=== PATIENT | female | born 1995 | race Caucasian/White ===

== ENCOUNTER 2021-09-08 12:21 | Emergency (ER) | payer BC, SELFPAY ==
--- NOTE | ~2021-09-08 | US_ITS ---
EXAMINATION: US OB <= 14 weeks fetus DATE: 09/08/2021 14:42 INDICATION: Cramping onset this morning. TECHNIQUE: Real-time transabdominal obstetric ultrasound. FINDINGS: No prior studies for comparison. The uterus measures 11.8 x 9.1 x 7.9 cm. There is an intrauterine gestational sac, with pole id entified. There is a small subchorionic hemorrhage measuring 11 x 8 x 3 mm. The crown rump length hannah sures 6.23 cm, which correlates with a estimated gestational age of 12 weeks 4 days. heart to conor are identified measuring 155 BPM. Right ovary is normal. Left ovary not visualized. IMPRESSION: 1. SL IUP with an EGA of 12 weeks, 4 days (EDC by current ultrasound of 03/19/2022). 2: Small subchorionic hemorrhage measuring 11 x 8 x 3 mm. Reviewed, dictated and finalized at location A. ONOLOGY TECHNICIAN IMPRESSION: 1. SL IUP with an EGA of 12 weeks, 4 days (EDC by current ultrasound of 022). 2: Small subchorionic hemorrhage measuring 11 x 8 x 3 mm.
[2021-09-08 12:38] VITALS: BP 153/78; PULSE 85; RESP 16; TEMP 36.8; O2SAT 100
[2021-09-08 13:19] LABS: Basophils Absolute Auto 0.1 K/mm3 (0.0-0.1); Basophils Percent Auto 0.5 % (0.2-1.2); Eosinophils Absolute Auto 0.2 K/mm3 (0-0.3); Eosinophils Percent Auto 1.5 % (0-4.4); Hematocrit 35.2 % (37.0-47.0); Immature Granulocyte Absolute 0.03 K/mm3 (0.00-0.031); Immature Granulocyte Percent A 0.3 % (0-0.5); Lymphocytes Absolute Auto 2.59 K/mm3 (0.9-3.2); Mean Corpuscular HGB Conc 34.1 g/dl (32-36); Mean Corpuscular Hemoglobin 29.8 pg (26-34); Mean Corpuscular Volume 87.3 fl (80-100); Mean Platelet Volume 9.3 fl (7.4-10.4); Monocytes Absolute Auto 0.7 K/mm3 (0.1-0.6); Monocytes Percent Auto 6.9 % (2.6-8.5); Neutrophils Absolute Auto 6.5 K/mm3 (1.3-6.7); Neutrophils Percent Auto 64.8 % (45.5-73.1); Platelet Count Result 330 k/mm3 (150-375); Red Blood Count 4.03 M/mm3 (4.2-5.4); Red Cell Distribution Width 12.2 % (11.5-14.5)
--- NOTE | 2021-09-08 13:26 | PC.NURSE ---
pt states she has been unable to set up care for this . Reports issues with her insurance. states she has a hx of PCOS. pt reports lower belly cramping x 1 day. denies vaginal bleeding or discharge.
--- NOTE | 2021-09-08 13:35 | PC.NURSE ---
lab called to add on additional tests
[2021-09-08 13:45] LABS: Add Urine Microscopic? YES; Amorphous Sediment Urine Few; Appearance Urine Cloudy (Clear); Bacteria Urine Trace /hpf; Bilirubin Urine Negative (Negative); Blood Urine Negative (Negative); Color Urine Yellow (Yellow); Glucose Urine UA Negative (Negative); Ketones Urine Negative (Negative); Leukocyte Esterase Ur Negative LEU/UL (Negative); Mucus Urine Rare /lpf; Nitrate Urine Negative (Negative); Protein Urine Negative (Negative); RBC Urine 0-2 /hpf (0-2); Specific Grav Ur 1.017 (1.001-1.035); Squamous Epithelial Cell Urine Few /hpf (Few); Urobilinogen Urine Negative mg/dL (<2.0)
[2021-09-08 14:07] LABS: Alanine Aminotransferase 17 U/L (4-35); Albumin Level 3.9 g/dL (3.5-5.1); Alkaline Phosphatase 50 U/L (38-126); Anion Gap 8 mmol/L (8-16); Aspartate Amino Transferase 25 U/L (14-36); Bilirubin,Total < 0.1 mg/dL (0.2-1.3); Blood Urea Nitrogen 8 mg/dL (7-17); Carbon Dioxide 21 mmol/L (22-30); Chloride 107 mmol/L (98-107); Estimated CRCL calculation 210 ml/min; Estimated Glomerular Filt Rate > 60; Glucose 93 mg/dL (65-110); Lipase 51 U/L (23-300); Potassium 3.7 mmol/L (3.4-5.0); Sodium 136 mmol/L (137-145)
--- NOTE | 2021-09-08 14:32 | PC.NURSE ---
pt to us via w/c.
--- NOTE | 2021-09-08 14:41 | ED.FEMALEGU ---
HPI - Female Genitourinary General Chief complaint: RADAR TESTER <Elke Luna PA-C - Last Filed: 09/08/21 17:14> Stated complaint: Cramping during <Elke Luna PA-C - Last Filed: 09/08/21 17:14> Time Seen by Provider: 09/08/21 13:32 <Elke Luna PA-C - Last Filed: 09/08/21 17:14> Source: patient <Elke Luna PA-C - Last Filed: 09/08/21 17:14> Mode of arrival: ambulatory <Elke Luna PA-C - Last Filed: 09/08/21 17:14> Limitations: no limitations <Elke Luna PA-C - Last Filed: 09/08/21 17:14> History of Present Illness HPI Narrative: This is a 26 year old female that presents to the ER for pelvic cramping starting today. Reports she is about 12 weeks . This is her first . She has not seen an OB yet this due to insurance reasons. Although, she has had a ultrasound that showed an intrauterine in July. Denies fever, vomiting, dysuria, or vaginal bleeding. <Elke Luna PA-C - Last Filed: 09/08/21 17:14> Related Data Allergies/Adverse reactions: Allergies Allergy/AdvReac Type Severity Reaction Status Date / Time No Known Allergies Allergy Verified 09/08/21 14:24 <Elke Luna PA-C - Last Filed: 09/08/21 17:14> Review of Systems Review of Systems: CONSTITUTIONAL: Denies fever GASTROINTESTINAL: Reports pelvic cramping. Denies nausea, vomiting, or diarrhea. GENITOURINARY: Denies dysuria <Elke Luna PA-C - Last Filed: 09/08/21 17:14> All systems reviewed & are unremarkable except as noted in HPI and below <Elke Luna PA-C - Last Filed: 09/08/21 17:14> PMF Past Medical History Medical History: Medical History (Updated 09/08/21 @ 17:14 by Elke Luna PA-C) No active medical problems <Elke Luna PA-C - Last Filed: 09/08/21 17:14> Social History Social History: Social History (Updated 09/08/21 @ 17:00 by Elke Luna PA-C) Substance use: never <Elke Luna PA-C - Last Filed: 09/08/21 17:14> Exam Narrative: GENERAL: Well-appearing, well-nourished, and in no acute distress. HEAD: Normocephalic, atraumatic. EYES: EOMI. CHEST: Clear to auscultation. No respiratory distress. No wheezes rales or rhonchi HEART: Regular rate and rhythm. No murmur heard. Normal peripheral pulses. ABDOMEN: Soft, nontender, nondistended, normal active bowel sounds. EXTREMITIES: Normal range of motion. No edema. SKIN: Warm, dry, no rash. NEURO: No focal deficits. Alert and oriented x3. PSYCH: Normal mood and affect <Elke Luna PA-C - Last Filed: 09/08/21 17:14> Course CARE NURSE RN/PA Physician Supervision For this patient encounter, I reviewed the CARE NURSE RN or PA documentation, treatment plan, and medical decision making <Ariel Harman MD - Last Filed: 09/08/21 19:20> Vital Signs Vital signs: Vital Signs Temperature 98.2 F 09/08/21 12:38 Pulse Rate 85 09/08/21 12:38 Respiratory Rate 16 09/08/21 12:38 Blood Pressure 153/78 H 09/08/21 12:38 Pulse Oximetry 100 09/08/21 12:38 Temperature 98.2 F 09/08/21 12:38 Pulse Rate 80 09/08/21 17:19 Respiratory Rate 18 09/08/21 17:19 Blood Pressure 102/88 09/08/21 17:19 Pulse Oximetry 99 09/08/21 17:19 <Elke Luna PA-C - Last Filed: 09/08/21 17:14> Vital Signs Temperature 98.2 F 09/08/21 12:38 Pulse Rate 85 09/08/21 12:38 Respiratory Rate 16 09/08/21 12:38 Blood Pressure 153/78 H 09/08/21 12:38 Pulse Oximetry 100 09/08/21 12:38 Temperature 98.2 F 09/08/21 12:38 Pulse Rate 80 09/08/21 17:19 Respiratory Rate 18 09/08/21 17:19 Blood Pressure 102/88 09/08/21 17:19 Pulse Oximetry 99 09/08/21 17:19 <Ariel Harman MD - Last Filed: 09/08/21 19:20> MDM - Female Genitourinary MDM Narrative Medical decision making narrative: Patient presents to the ER for pelvic cramping. Reports she is about 12 weeks . Has no
[2021-09-08] MEDS: SODIUM CHLORIDE 0.9% IV 500 ML 999 ML IV CONT (15:08)
--- NOTE | 2021-09-08 15:52 | PC.NURSE ---
Pt updated on stay in ER, all questions addressed. ambulated to restroom.
[2021-09-08 17:19] VITALS: BP 102/88; PULSE 80; RESP 18; O2SAT 99
== END 2021-09-08 17:19 | disposition home or self-care (01) ==
PROVIDERS: Physician Assistant; Emergency Provider Emergency Medicine
DX: O26.891 Other specified pregnancy related conditions, first trimester (principal); R10.9 Unspecified abdominal pain; Z3A.12 12 weeks gestation of pregnancy
CPT/HCPCS: 36415; 76801; 80053; 81001; 81025; 83690; 84702; 85025; 85461; 96365; 99284; J0131; J7040

== ENCOUNTER 2021-10-16 13:32 | Outpatient (CLI) | payer OTHER, SELFPAY ==
--- NOTE | ~2021-10-16 | US_ITS ---
US breast LT limited 10/16/2021 14:29 Indication: Palpable left breast lump Procedure: High-resolution ultrasound of the left breast Comparison: No prior studies for comparison. Findings: Inferior and lateral to the left breast in the area of palpable concern there is an oval ci rcumscribed hypoechoic mass with parallel orientation, no internal vascularity and no posterior featu res measuring 10 x 8 x 4 mm. No other masses identified. Impression: 1: Oval hypoechoic 1 cm mass inferior lateral to the left breast, likely benign. BI-RADS CATEGORY 3-PROBABLY BENIGN FINDING RECOMMENDATION: Six-month follow-up left breast ultrasound recommended. Reviewed, dictated and finalized at location A. Impression: 1: Oval hypoechoic 1 cm mass inferior lateral to the left breast, likely benign . BI-RADS CATEGORY 3-PROBABLY BENIGN FINDING RECOMMENDATION: Six-month follow-up left breast ultrasound recommended.
== END 2021-10-16 13:33 | disposition home or self-care (01) ==
LOC: ANHIMG 13:34
PROVIDERS: Visit Provider Advanced Practice Midwife
DX: N63.20 Unspecified lump in the left breast, unspecified quadrant (principal); R92.8 Other abnormal and inconclusive findings on diagnostic imaging of breast
CPT/HCPCS: 76642

== ENCOUNTER 2021-12-24 10:41 | Observation (INO) | payer OTHER, SELFPAY ==
[2021-12-24] VITALS (17 sets, daily range): BP systolic 127; BP diastolic 77; PULSE 72–88; O2SAT 97–99; BMI 48.0
--- NOTE | 2021-12-24 11:01 | OBADM ---
This patient, Pita Martinez, admitted to the OB room OB Post 116 for observation. Patient/family oriented to hospital policies and general routines including ID bracelet, bed and alarms, visiting hours, pain management, procedures, bathroom and other care routines, personal items, smoking policy, room service/diet, and visiting hours. Patient/Family are encouraged to report perceived risks to care and to ask questions if they do not understand what they are told or what they should do.
[2021-12-24] MEDS: CYCLOBENZAPRINE HCL 10 MG TABLET PO (11:08)
--- NOTE | 2021-12-24 13:12 | PC.NURSE ---
1236- Spoke with Dr. Pritchett, patient discomfort mildly relieved with flexeril. Orders to discharge home with tylenol, heat and cold. Call office if unresolved.
--- NOTE | 2022-01-18 13:54 | PM.OBTRLD ---
OB - Triage/Final Diagnosis Visit Information Comments/Additional reasons for admission: I have assessed the risk for this patient, Pita Martinez, and determined that she would benefit from observation care. Final Diagnosis (1) Pelvic pain: Code(s): R10.2 - Pelvic and perineal pain Status: Acute
== END 2021-12-24 13:01 | disposition home or self-care (01) ==
PROVIDERS: Admitting Provider Obstetrics & Gynecology; Visit Provider Obstetrics & Gynecology
DX: O26.899 Other specified pregnancy related conditions, unspecified trimester (principal); R10.9 Unspecified abdominal pain; Z3A.00 Weeks of gestation of pregnancy not specified
CPT/HCPCS: A9270; G0378; G0379

== ENCOUNTER 2022-01-25 11:00 | Outpatient (RCR) | payer OTHER, SELFPAY ==
--- NOTE | 2021-12-28 14:43 | PTOPEVAL ---
PHYSICAL THERAPY EVALUATION AND PLAN OF CARE 12-28-21 Thank you for referring Pita Martinez to [facility] for the diagnosis of sciatica with .? She is scheduled to be seen for therapy? 1-2 x/week for 5 weeks, depending upon her schedule. Please review, sign, date and return this plan of care DAMI. I agree with and certify that the following plan of care is medically necessary. Referring Physician Date Referring Provider: Sol Lee CNM Past Medical History Cardiovascular History Hx Hypertension Yes: no meds Reproductive History Hx Other Reproductive Disorders Yes: polycystic ovarian syndrome Psychosocial History Hx Psychiatric Disorders No Significant History Pain History History of Any Previous or Ongoing No Significant History Instance of Pain Anesthesia History Hx Anesthesia Reactions No Significant History Other History Hx Other Medical Conditions Yes: obesity 240-260# is normal wt Evaluation Information Diagnosis sciatica with Onset July 2021 Additional Evaluation Detail have gained 40# so far with Subjective Information gradual increase in back pain Query Text:As Reported By Patient/ with ; no trauma or Family injury to back; was on light duty, returned to full work and with lifting, had pulled vagina muscles and returned to light duty; delivery date for her first child is 03-20-22 Previous Treatments For This Problem no back treatments Prior Level of Function Activity Level (Last 3 Months) 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; Comments Additional Prior Level of Function dr has her on light duty Comments restriction--training, no lifting; has help at home with home tasks and new depression med has made her ill, so required help; Pain Assessment Pain Scale Pain Scale Used Numeric (1 - 10) Self Report Pain Assessment Bilateral Back Reported Pain Level 6 Pain Description Sharp,Stabbing Radicular Pain Location L LE post LE to toes ~ 3x/wk, last 20-30 min; Pain Frequency Chronic,Continuous Other Pain Description could not move L leg Lowest Pain Intensity 3 Greatest Pain Intensity 10 Pain Aggravating Factors Sitting Other Pain Aggravating Factors reports sit tolerance 5
--- NOTE | 2022-01-04 08:17 | PCPTNOTE ---
Patient called & cancelled scheduled appointment this date due to being sick this morning.
--- NOTE | 2022-01-12 10:53 | PCPTNOTE ---
Patient called & cancelled scheduled appointment this date due to oversleeping.
--- NOTE | 2022-01-14 07:36 | PCPTNOTE ---
Patient called & cancelled scheduled appointment this date due to due to being up all night at the hospital just got home and needs to sleep.
--- NOTE | 2022-01-22 08:00 | PCPTNOTE ---
Patient called & cancelled scheduled appointment this date due to not feeling well.
--- NOTE | 2022-02-01 11:37 | PCPTNOTE ---
pt did not show for today's reeval; called and her voice mail box is full unable to reach her.
--- NOTE | 2022-03-08 13:29 | PTOPDC ---
Evaluation Information Assessment Status Evaluation Attending Provider: Sol Lee CNM Patient:Pita Martinez Date of :1995 Pita has not returned for any further treatments since 01/25/2022, therefore she will be discharged at this time. She had 5 PT sessions from December to January 25, with 1 no show and 4 call/cancel appointments. The goals were not addressed. Thank you for referring this patient to [facility]. Please review, sign, date and return this discharge summary DAMI. I have been updated about the patient's current status and I agree with discharge from the above service at this time. Referring Physician Date
== END 2022-03-08 14:05 | disposition home or self-care (01) ==
LOC: ANHPT 11:00
PROVIDERS: Visit Provider Advanced Practice Midwife
DX: M54.30 Sciatica, unspecified side (principal)
CPT/HCPCS: 97110; 97112; 97161; 97530

== ENCOUNTER 2022-02-03 13:34 | Outpatient (CLI) | payer OTHER, SELFPAY ==
[2022-02-03] VITALS (8 sets, daily range): BP systolic 110–128; BP diastolic 63–80; PULSE 67–85
[2022-02-03 14:10] LABS: Basophils Percent Auto 0.4 % (0.2-1.2); Eosinophils Absolute Auto 0.2 K/mm3 (0-0.3); Eosinophils Percent Auto 1.5 % (0-4.4); Hematocrit 33.7 % (37.0-47.0); Immature Granulocyte Absolute 0.06 K/mm3 (0.00-0.031); Immature Granulocyte Percent A 0.5 % (0-0.5); Lymphocytes Absolute Auto 2.31 K/mm3 (0.9-3.2); Mean Corpuscular HGB Conc 32.6 g/dl (32-36); Mean Corpuscular Hemoglobin 28.6 pg (26-34); Mean Corpuscular Volume 87.5 fl (80-100); Mean Platelet Volume 9.6 fl (7.4-10.4); Monocytes Absolute Auto 0.7 K/mm3 (0.1-0.6); Monocytes Percent Auto 6.3 % (2.6-8.5); Neutrophils Absolute Auto 7.7 K/mm3 (1.3-6.7); Neutrophils Percent Auto 70.3 % (45.5-73.1); Platelet Count Result 299 k/mm3 (150-375); Red Blood Count 3.85 M/mm3 (4.2-5.4); Red Cell Distribution Width 12.2 % (11.5-14.5)
[2022-02-03 14:24] LABS: Alanine Aminotransferase 12 U/L (6-35); Albumin Level 3.4 g/dL (3.5-5.1); Alkaline Phosphatase 87 U/L (38-126); Anion Gap 7 mmol/L (8-16); Aspartate Amino Transferase 17 U/L (14-36); Bilirubin,Total 0.2 mg/dL (0.2-1.3); Blood Urea Nitrogen 8 mg/dL (7-17); Calcium 8.9 mg/dL (8.4-10.2); Carbon Dioxide 22 mmol/L (22-30); Chloride 106 mmol/L (98-107); Estimated Glomerular Filt Rate > 60; Glucose 82 mg/dL (65-110); Potassium 3.9 mmol/L (3.4-5.0); Sodium 135 mmol/L (137-145)
[2022-02-03 14:31] LABS: Add Urine Microscopic? NO; Appearance Urine Clear (Clear); Bilirubin Urine Negative (Negative); Blood Urine Negative (Negative); Color Urine Yellow (Yellow); Glucose Urine UA Negative (Negative); Ketones Urine Negative (Negative); Leukocyte Esterase Ur Negative LEU/UL (NEGATIVE); Nitrate Urine Negative (Negative); Protein Urine Negative (Negative); Urobilinogen Urine 0.2 mg/dL (<2.0)
[2022-02-03 14:48] LABS: Creatinine Urine 113.1 mg/dL
[2022-02-03 15:28] LABS: Total Protein Urine Random < 5 mg/dL
[2022-02-03 15:29] LABS: Ur Ttl Prot Creatinine Ratio < 0.04 mg/mg (0-0.20)
== END 2022-02-03 15:30 | disposition home or self-care (01) ==
LOC: ANHOBOP 13:38 → ANHOBPP 13:38
PROVIDERS: Visit Provider Obstetrics & Gynecology
DX: O13.3 Gestational [pregnancy-induced] hypertension without significant proteinuria, third trimester (principal); Z3A.33 33 weeks gestation of pregnancy
CPT/HCPCS: 36415; 59025; 80053; 81003; 82570; 84156; 84550; 85025; 87086; 99199

== ENCOUNTER 2022-03-10 14:26 | Outpatient (CLI) | payer OTHER, SELFPAY ==
[2022-03-10 14:45] VITALS: BP 124/77; PULSE 95
[2022-03-10 15:00] VITALS: BP 122/78; PULSE 97
[2022-03-10 15:02] LABS: Basophils Percent Auto 0.4 % (0.2-1.2); Eosinophils Absolute Auto 0.2 K/mm3 (0-0.3); Eosinophils Percent Auto 1.7 % (0-4.4); Hematocrit 34.4 % (37.0-47.0); Hemoglobin 11.4 g/dL (12.0-15.0); Immature Granulocyte Absolute 0.05 K/mm3 (0.00-0.031); Immature Granulocyte Percent A 0.4 % (0-0.5); Lymphocytes Percent Auto 15.1 % (18.3-44.2); Mean Corpuscular HGB Conc 33.1 g/dl (32-36); Mean Corpuscular Hemoglobin 28.2 pg (26-34); Mean Corpuscular Volume 85.1 fl (80-100); Mean Platelet Volume 9.5 fl (7.4-10.4); Monocytes Absolute Auto 0.7 K/mm3 (0.1-0.6); Monocytes Percent Auto 6.6 % (2.6-8.5); Neutrophils Absolute Auto 8.6 K/mm3 (1.3-6.7); Neutrophils Percent Auto 75.8 % (45.5-73.1); Platelet Count Result 298 k/mm3 (150-375); Red Blood Count 4.04 M/mm3 (4.2-5.4); Red Cell Distribution Width 12.5 % (11.5-14.5); White Blood Count 11.3 K/mm3 (4.5-10.0)
[2022-03-10 15:15] VITALS: BP 121/81; PULSE 82
[2022-03-10 15:17] LABS: Alanine Aminotransferase 13 U/L (6-35); Albumin Level 3.5 g/dL (3.5-5.1); Alkaline Phosphatase 99 U/L (38-126); Anion Gap 12 mmol/L (8-16); Aspartate Amino Transferase 20 U/L (14-36); Bilirubin,Total 0.1 mg/dL (0.2-1.3); Blood Urea Nitrogen 9 mg/dL (7-17); Calcium 9.4 mg/dL (8.4-10.2); Carbon Dioxide 19 mmol/L (22-30); Chloride 103 mmol/L (98-107); Estimated Glomerular Filt Rate > 60; Glucose 112 mg/dL (65-110); Potassium 3.7 mmol/L (3.4-5.0); Sodium 134 mmol/L (137-145); Uric Acid 4.4 mg/dL (2.5-7.5)
[2022-03-10 15:30] VITALS: BP 115/76; PULSE 87
[2022-03-10 16:07] LABS: Add Urine Microscopic? YES; Appearance Urine Clear (Clear); Bilirubin Urine Negative (Negative); Blood Urine Negative (Negative); Color Urine Yellow (Yellow); Glucose Urine UA Negative (Negative); Ketones Urine Negative (Negative); Leukocyte Esterase Ur 1+ LEU/UL (NEGATIVE); Nitrate Urine Negative (Negative); Protein Urine Negative (Negative); Specific Grav Ur 1.015 (1.001-1.035); Urobilinogen Urine 0.2 mg/dL (<2.0)
[2022-03-10 16:14] LABS: Bacteria Urine Trace /hpf; RBC Urine 0-2 /hpf (0-2); Squamous Epithelial Cell Urine Moderate /hpf (Few)
[2022-03-10 16:51] LABS: Creatinine Urine 85.1 mg/dL; Total Protein Urine Random 12 mg/dL; Ur Ttl Prot Creatinine Ratio 0.14 mg/mg (0-0.20)
--- NOTE | 2022-03-10 17:01 | PC.NURSE ---
Debbie Lee updated on VS and labs. Discharge order received.
[2022-03-10 18:20] VITALS: BP 124/77; PULSE 95
== END 2022-03-10 17:05 | disposition home or self-care (01) ==
LOC: ANHOBOP 14:30 → ANHOBPP 14:30
PROVIDERS: PCP Advanced Practice Midwife; Visit Provider Obstetrics & Gynecology
DX: O13.9 Gestational [pregnancy-induced] hypertension without significant proteinuria, unspecified trimester (principal); Z3A.00 Weeks of gestation of pregnancy not specified
CPT/HCPCS: 36415; 59025; 80053; 81001; 82570; 84156; 84550; 85025; 87086; 99199

== ENCOUNTER 2022-03-13 15:44 | Inpatient (IN) | payer OTHER, SELFPAY ==
[2022-03-13] VITALS (14 sets, daily range): BP systolic 89–137; BP diastolic 31–82; PULSE 84–117; TEMP 36.9; BMI 51.8
--- OUTSIDE RECORDS SUMMARY | 2022-03-13 15:50 | XMS_ITS | Encounter Summary ---
:1995 Author Care Team Providers Name Role Phone Shreya Fuentes Primary Care Provider [phone] Reason for Visit OB visit OB [id number] EDC 03/20/2022 LMP 05/30/2021 Assessment and Plan Assessment Note Patient is ___weeks . Discussed plan. 1. Routine care 2. Urinary symptoms ? urinalysis, dipstick Discussion Note: None recorded.Patient educational handouts: No information available. Plan of Care Reminders Provider Appointments Ob Routine 03/17/2022 2:00PM Sol moon CNM ? Nst 03/17/2022 1:00PM Nst, , EQUIP ? U/S OB BPP 03/17/2022 1:30PM Ultrasound, TECH Lab Urinalysis, Dipstick 02/24/2022 [place] Referral None recorded. ? ? Procedures None recorded. ? ? Surgeries None recorded. ? ? Imaging None recorded. ? ? Medications Name Start Date ? ? alprazolam 2 mg tablet ? TAKE 1 TABLET BY MOUTH 4 TIMES DAILY NEEDED escitalopram 10 mg tablet ? TAKE 1 TABLET BY MOUTH EVERY DAY metoclopramide 10 mg tablet ? Take 1 tablet 4 times a day by oral route. Vitamin ? promethazine 25 mg tablet ? Take 1 tablet every 4 hours by oral route. Medications Administered None recorded. Vitals Height Weight BMI Blood Pressure 5 ft 5.75 in 317 lbs 51.6 kg/m2 124/79 mm[Hg] Results Lab Results Date Name Specimen Result Interpretation Description Value Range Status Address ? 02/24/2022 Urinalysis, Urine ? Leukocytes +2 ? ? [place]: Dipstick
--- OUTSIDE RECORDS SUMMARY | 2022-03-13 15:50 | XMS_ITS | Encounter Summary ---
:1995 Author Care Team Providers Name Role Phone Shreya Fuentes Primary Care Provider [phone] Reason for Visit None recorded. Assessment and Plan 1. Maternal obesity complicating pregna ncy, childbirth and the puerperium, antepartum ? US, obstetric, biophysical profile + non-stress test Discussion Note: None recorded.Patient educational handouts: No information available. Plan of Care Reminders Provider Appointments Ob Routine 03/17/2022 Sol Lee CNM 2:00PM ? Nst 03/17/2022 Nst, , EQUIP 1:00PM ? U/S OB BPP 03/17/2022 Ultrasound, XUAN H 1:30PM Lab None recorded. ? ? Referral None recorded. ? ? Procedures None recorded. ? ? Surgeries None recorded. ? ? Imaging US, Obstetric, Biophysical 03/10/2022 [facility] Profile + Non-stress Test Medications Name Start Date ? ? alprazolam [...] oral route. Medications Administered None recorded. Vitals None recorded. Results Lab Results None recorded. Allergies Code Code System Name Reaction Severity Onset Penicillin ? ? ? 80656 RxNorm Sulfabenzamide ? ? ? Problems Name Status Onset
--- OUTSIDE RECORDS SUMMARY | 2022-03-13 15:50 | XMS_ITS | Encounter Summary ---
:1995 Author Care Team Providers Name Role Phone Shreya Fuentes Primary Care Provider [phone] Reason for Visit None recorded. Assessment and Plan 1. Maternal obesity complicating pregna ncy, childbirth and the puerperium, antepartum ? non-stress test Discussion Note: None recorded.Patient educational handouts: No information available. Plan of Care Reminders Provider Appointments Ob Routine 03/17/2022 2:00PM Sol moon CNM ? Nst 03/17/2022 1:00PM Nst, , EQUIP ? U/S OB BPP 03/17/2022 1:30PM Ultrasound, TECH Lab None recorded. ? ? Referral None recorded. ? ? Procedures None recorded. ? ? Surgeries None recorded. ? ? Imaging Non-stress Test 03/03/2022 [place] Medications Name Start Date ? ? alprazolam [...] Reaction Severity Onset Penicillin ? ? ? 65699 RxNorm Sulfabenzamide ? ? ? Problems Name Status Onset Date Source ? Active 11/04/2021 ? Maternal Obesity Complicating , Childbirth and the Acti ve 02/10/2022 ? Puerperium, Antepartum Procedures
--- OUTSIDE RECORDS SUMMARY | 2022-03-13 15:50 | XMS_ITS | Encounter Summary ---
:1995 Author Care Team Providers Name Role Phone Shreya Fuentes Primary Care Provider [phone] Reason for Visit OB visit OB [id number] EDC 03/20/2022 LMP 05/30/2021 Assessment and Plan Assessment Note Patient is _38__weeks . Discuss ed plan. 1. Routine care Discussion Note: None recorded.Patient educational handouts: No [...] BMI Blood Pressure 5 ft 5.75 in 319 lbs 51.9 kg/m2 136/90 mm[Hg] Results Lab Results None recorded. Allergies Code Code System Name Reaction Severity Onset Penicillin ? ? ? 77069 RxNorm Sulfabenzamide ? ? ? Problems Name Status Onset Date Source ? Active
--- OUTSIDE RECORDS SUMMARY | 2022-03-13 15:50 | XMS_ITS ---
:1995 Author Care Team Providers Name Role Phone AUGUST MCDONALD Primary Care Provider [phone] Allergies Code Code System Name Reaction Severity Status Onset Penicillin ? ? Active ? 38586 RxNorm Sulfabenzamide ? ? Active ? Medications Name Status Start Date Stop Date ? ? alprazolam 2 mg tablet Active ? Not avail able TAKE 1 TABLET BY MOUTH 4 TIMES DAILY NEEDED escitalopram 10 mg tablet Active ? Not av ailable metoclopramide 10 mg tablet Active ? Not available Vitamin Active ? Not available promethazine 25 mg tablet Active ? Not av ailable Problems Name Status Onset Date Source ? Active 11/04/2021 ? Maternal Obesity Complicating , Childbirth and the Acti ve 02/10/2022 ? Puerperium, Antepartum Procedures Date Name Performed by ? 07/11/2013 Tonsilectomy/adenoids Information not av ailable 10/09/2021 US, Breast, Unilateral [facility] [address] [place] [address] ([address]) 11/04/2021 US, Obstetric, 2Nd or 3Rd Trimester Kristin [facility]ono [address] [place] [address] ([address]) 11/04/2021 US, Obstetric, Transvaginal [facility] [address] [place] [address] ([address]) 12/02/2021 US, Obstetric, Follow-up [facility] [address]
--- OUTSIDE RECORDS SUMMARY | 2022-03-13 15:50 | XMS_ITS | Encounter Summary ---
:1995 Author Care Team Providers Name Role Phone Shreya Fuentes Primary Care Provider [phone] Reason for Visit OB visit OB [id number] EDC 03/20/2022 LMP 05/30/2021 Assessment and Plan Assessment Note Patient is _37__weeks . Discuss ed plan. 1. Routine care [...] BMI Blood Pressure 5 ft 5.75 in 321 lbs 52.2 kg/m2 123/82 mm[Hg] Results Lab Results None recorded. Allergies Code Code System Name Reaction Severity Onset Penicillin ? ? ? 86752 RxNorm Sulfabenzamide ? ? ? Problems Name Status Onset Date Source ? Active
--- OUTSIDE RECORDS SUMMARY | 2022-03-13 15:50 | XMS_ITS | Encounter Summary ---
:1995 Author Care Team Providers Name Role Phone Shreya Fuentes Primary Care Provider [phone] Reason for Visit None recorded. Assessment and [...] recorded. ? ? Imaging US, Obstetric, Biophysical 03/03/2022 [facility] Profile + Non-stress Test Medications Name [...] Reaction Severity Onset Penicillin ? ? ? 07446 RxNorm Sulfabenzamide ? ? ? Problems Name Status Onset
--- OUTSIDE RECORDS SUMMARY | 2022-03-13 15:50 | XMS_ITS | Encounter Summary ---
:1995 Author Care Team Providers Name Role Phone Shreya Fuentes Primary Care Provider [phone] Reason for Visit None recorded. Assessment and [...] None recorded. ? ? Imaging Non-stress Test 03/10/2022 [place] Medications Name Start Date ? ? alprazolam [...] Reaction Severity Onset Penicillin ? ? ? 28503 RxNorm Sulfabenzamide ? ? ? Problems Name Status Onset Date Source ? Active 11/04/2021 ? Maternal Obesity Complicating , Childbirth and the Acti ve 02/10/2022 ? Puerperium, Antepartum Procedures
--- OUTSIDE RECORDS SUMMARY | 2022-03-13 15:51 | XMS_ITS | Encounter Summary ---
:1995 Author Care Team Providers Name Role Phone Shreya Fuentes Primary Care Provider [phone] Reason for Visit None recorded. Assessment and [...] None recorded. ? ? Imaging Non-stress Test 02/17/2022 [place] Medications Name Start Date ? ? alprazolam [...] Reaction Severity Onset Penicillin ? ? ? 84480 RxNorm Sulfabenzamide ? ? ? Problems Name Status Onset Date Source ? Active 11/04/2021 ? Maternal Obesity Complicating , Childbirth and the Acti ve 02/10/2022 ? Puerperium, Antepartum Procedures
--- OUTSIDE RECORDS SUMMARY | 2022-03-13 15:51 | XMS_ITS | Encounter Summary ---
:1995 Author Care Team Providers Name Role Phone Shreya Fuentes Primary Care Provider [phone] Reason for Visit OB visit Assessment and Plan 1. Routine care 2. Maternal obesity complicating pregna ncy, childbirth and the puerperium, antepartum Discussion Note: None recorded.Patient educational handouts: No [...] BMI Blood Pressure 5 ft 5.75 in 315 lbs 51.2 kg/m2 125/77 mm[Hg] Results Lab Results None recorded. Allergies Code Code System Name Reaction Severity Onset Penicillin ? ? ? 86287 RxNorm Sulfabenzamide ? ? ? Problems Name Status Onset Date Source ? Active 11/04/2021 ? Maternal Obesity Complicating , Childbirt
--- OUTSIDE RECORDS SUMMARY | 2022-03-13 15:51 | XMS_ITS | Encounter Summary ---
:1995 Author Care Team Providers Name Role Phone Shreya Fuentes Primary Care Provider [phone] Reason for Visit None recorded. Assessment and Plan 1. Maternal obesity complicating pregna ncy, childbirth and the puerperium, antepartum ? US, obstetric, follow-up ? US, obstetric, biophysical profile + non-stress test Discussion Note: None recorded.Patient educational handouts: No information available. Plan of Care Reminders Provider Appointments Ob Routine 03/17/2022 Sol Lee , CNM 2:00PM ? Nst 03/17/2022 Nst, , EQUIP 1:00PM ? U/S OB BPP 03/17/2022 Ultrasound, XUAN H 1:30PM Lab None recorded. ? ? Referral None recorded. ? ? Procedures None recorded. ? ? Surgeries None recorded. ? ? Imaging US, Obstetric, Follow-up 02/24/2022 [place] ? US, Obstetric, Biophysical 02/24/2022 Amanda bermudez Profile + Non-stress Test Medications Name Start [...]
--- OUTSIDE RECORDS SUMMARY | 2022-03-13 15:51 | XMS_ITS | Encounter Summary ---
:1995 Author Care Team Providers Name Role Phone Shreya Fuentes Primary Care Provider [phone] Reason for Visit None recorded. Assessment and Plan 1. Maternal obesity complicating pregna ncy, childbirth and the puerperium, antepartum ? US, obstetric, follow-up Discussion Note: None recorded.Patient educational handouts: No information available. Plan of Care Reminders Provider Appointments Ob Routine 03/17/2022 2:00PM Sol moon CNM ? Nst 03/17/2022 1:00PM Nst, , EQUIP ? U/S OB BPP 03/17/2022 1:30PM Ultrasound, TECH Lab None recorded. ? ? Referral None recorded. ? ? Procedures None recorded. ? ? Surgeries None recorded. ? ? Imaging US, Obstetric, Follow-up 01/28/2022 [facility]ano Medications Name Start Date ? ? alprazolam [...] Reaction Severity Onset Penicillin ? ? ? 53324 RxNorm Sulfabenzamide ? ? ? Problems Name Status Onset Date Source ? Active 11/04/2021 ? Maternal Obesity Complicating , Childbirth and the Acti ve 02/10/2022 ? Puerperium, Antepartum P
--- OUTSIDE RECORDS SUMMARY | 2022-03-13 15:51 | XMS_ITS | Encounter Summary ---
:1995 Author Care Team Providers Name Role Phone Shreya Fuentes Primary Care Provider [phone] Reason for Visit None recorded. Assessment and [...] None recorded. ? ? Imaging Non-stress Test 02/24/2022 [place] Medications Name Start Date ? ? alprazolam [...] Reaction Severity Onset Penicillin ? ? ? 08151 RxNorm Sulfabenzamide ? ? ? Problems Name Status Onset Date Source ? Active 11/04/2021 ? Maternal Obesity Complicating , Childbirth and the Acti ve 02/10/2022 ? Puerperium, Antepartum Procedures
--- OUTSIDE RECORDS SUMMARY | 2022-03-13 15:51 | XMS_ITS | Encounter Summary ---
:1995 Author Care Team Providers Name Role Phone Shreya Fuentes Primary Care Provider [phone] Reason for Visit OB visit OB [id number] EDC 03/20/2022 LMP 05/30/2021 Assessment and Plan Assessment Note Patient is __35_weeks . Discuss ed plan. 1. Routine care [...] BMI Blood Pressure 5 ft 5.75 in 316 lbs 51.4 kg/m2 134/87 mm[Hg] Results Lab Results None recorded. Allergies Code Code System Name Reaction Severity Onset Penicillin ? ? ? 89431 RxNorm Sulfabenzamide ? ? ? Problems Name Status Onset Date Source ? Active
--- OUTSIDE RECORDS SUMMARY | 2022-03-13 15:51 | XMS_ITS | Encounter Summary ---
:1995 Author Care Team Providers Name Role Phone Shreya Fuentes Primary Care Provider [phone] Reason for Visit OB visit Assessment and Plan Assessment Note Patient is ___weeks . Discussed plan. 1. Nausea and vomiting ? promethazine 25 mg tablet ? Reglan 10 mg tablet Discussion Note: None recorded.Patient educational handouts: No [...] BMI Blood Pressure 5 ft 5.75 in 307 lbs 49.9 kg/m2 129/83 mm[Hg] Results Lab Results None recorded. Allergies Code Code System Name Reaction Severity Onset Penicillin ? ? ? 80673 RxNorm Sulfabenzamide ? ? ? Problems Name Status Onset Date Source ?
--- OUTSIDE RECORDS SUMMARY | 2022-03-13 15:51 | XMS_ITS | Encounter Summary ---
:1995 Author Care Team Providers Name Role Phone Shreya Fuentes Primary Care Provider [phone] Reason for Visit OB visit Assessment and Plan Assessment Note Patient is ___weeks . Discussed plan. 1. Routine care Discussion Note: None recorded.Patient educational handouts: No information available. Plan of Care Reminders Provider Appointments Ob Routine 03/17/2022 2:00PM Sol moon CNM ? Nst 03/17/2022 1:00PM Nst, , MANFRED ? U/S OB BPP 03/17/2022 1:30PM Ultrasound, [...] BMI Blood Pressure 5 ft 5.75 in 300 lbs 48.8 kg/m2 128/85 mm[Hg] Results Lab Results None recorded. Allergies Code Code System Name Reaction Severity Onset Penicillin ? ? ? 71560 RxNorm Sulfabenzamide ? ? ? Problems Name Status Onset Date Source ? Active 11/04/2021 ? Maternal Obesity Complicating , Childbirth and t
--- OUTSIDE RECORDS SUMMARY | 2022-03-13 15:51 | XMS_ITS | Encounter Summary ---
:1995 Author Care Team Providers Name Role Phone Shreya Fuentes Primary Care Provider [phone] Reason for Visit None recorded. Assessment and [...] recorded. ? ? Imaging US, Obstetric, Biophysical 02/10/2022 [facility] Profile + Non-stress Test Medications [...] Reaction Severity Onset Penicillin ? ? ? 73902 RxNorm Sulfabenzamide ? ? ? Problems Name Status Onset
--- OUTSIDE RECORDS SUMMARY | 2022-03-13 15:51 | XMS_ITS | Encounter Summary ---
:1995 Author Care Team Providers Name Role Phone Shreya Fuentes Primary Care Provider [phone] Reason for Visit None recorded. Assessment and [...] recorded. ? ? Imaging US, Obstetric, Biophysical 02/17/2022 [facility] Profile + Non-stress Test Medications Name [...] Reaction Severity Onset Penicillin ? ? ? 83888 RxNorm Sulfabenzamide ? ? ? Problems Name Status Onset
--- OUTSIDE RECORDS SUMMARY | 2022-03-13 15:51 | XMS_ITS | Encounter Summary ---
:1995 Author Care Team Providers Name Role Phone Shreya Fuentes Primary Care Provider [phone] Reason for Visit OB visit Assessment and [...] BMI Blood Pressure 5 ft 5.75 in 309 lbs 50.3 kg/m2 119/79 mm[Hg] Results Lab Results None recorded. Allergies Code Code System Name Reaction Severity Onset Penicillin ? ? ? 29208 RxNorm Sulfabenzamide ? ? ? Problems Name Status Onset Date Source ? Active 11/04/2021 ? Maternal Obesity Complicating , Childbirth and t
--- OUTSIDE RECORDS SUMMARY | 2022-03-13 15:51 | XMS_ITS | Encounter Summary ---
:1995 Author Care Team Providers Name Role Phone Shreya Fuentes Primary Care Provider [phone] Reason for Visit None recorded. Assessment and [...] None recorded. ? ? Imaging Non-stress Test 02/10/2022 [place] Medications Name Start Date ? ? alprazolam [...] Reaction Severity Onset Penicillin ? ? ? 84114 RxNorm Sulfabenzamide ? ? ? Problems Name Status Onset Date Source ? Active 11/04/2021 ? Maternal Obesity Complicating , Childbirth and the Acti ve 02/10/2022 ? Puerperium, Antepartum Procedures
--- NOTE | 2022-03-13 16:25 | WPDANESEPP ---
Anes - Eval Pre Procedure Procedure: labor epidural Date/Time: 03/13/22 16:25 Surgeon: talia Preop Diagnosis: pain during labor Pre Op Diagnosis: IOL Patient Data Age: 26 Gender: F Height: Weight: Allergies Allergy/AdvReac Type Severity Reaction Status Date / Time Penicillins Allergy Hives Verified 03/01/22 13:36 sulfabenzamide Allergy Hives Verified 03/01/22 13:36 Home Medications Medication Instructions Recorded Confirmed Type escitalopram oxalate 10 mg tablet 10 tablet PO DAILY 12/24/21 12/24/21 History vit#24-iron amino acid 1 tablet PO DAILY 12/24/21 12/24/21 History chelat-folic acid 30 mg-975 mcg tablet Patient hx anesthesia problems: none Family hx anesthesia problems: none Results Review: All pre-operative results and documents have been reviewed as part of the pre-operative evaluation. [facility] Past Medical History Medical History (Updated 03/13/22 @ 16:26 by Agnieszka Jarvis CRNA) No active medical problems Family History Family History (Updated 03/01/22 @ 13:38 by Lalit Sandhu RN) Mother Heart disease Hypertension Stomach cancer Anemia Grandparent Lung cancer Social History Social History (Updated 09/08/21 @ 17:00 by Elke Luna PA-C) Substance use: current Last use: 01/2022 Spiritual care concerns: No Exam Day of Procedure 03/13/22 16:25
[2022-03-13 16:32] LABS: Basophils Percent Auto 0.3 % (0.2-1.2); Eosinophils Absolute Auto 0.2 K/mm3 (0-0.3); Eosinophils Percent Auto 1.6 % (0-4.4); Hemoglobin 11.7 g/dL (12.0-15.0); Immature Granulocyte Absolute 0.05 K/mm3 (0.00-0.031); Immature Granulocyte Percent A 0.5 % (0-0.5); Lymphocytes Absolute Auto 2.13 K/mm3 (0.9-3.2); Lymphocytes Percent Auto 19.3 % (18.3-44.2); Mean Corpuscular HGB Conc 34.4 g/dl (32-36); Mean Corpuscular Hemoglobin 28.6 pg (26-34); Mean Corpuscular Volume 83.1 fl (80-100); Mean Platelet Volume 9.9 fl (7.4-10.4); Monocytes Absolute Auto 0.8 K/mm3 (0.1-0.6); Monocytes Percent Auto 7.4 % (2.6-8.5); Neutrophils Absolute Auto 7.9 K/mm3 (1.3-6.7); Neutrophils Percent Auto 70.9 % (45.5-73.1); Platelet Count Result 312 k/mm3 (150-375); Red Blood Count 4.09 M/mm3 (4.2-5.4); Red Cell Distribution Width 12.5 % (11.5-14.5); White Blood Count 11.1 K/mm3 (4.5-10.0)
[2022-03-13 16:50] LABS: Amphetamine Screen Urine Negative (Negative); Barbiturate Screen Urine Negative (Negative); Benzodiazepines Screen Urine Negative (Negative); Cannabinoid Screen Urine Negative (Negative); Cocaine Screen Urine Negative (Negative); Methadone Screen Urine Negative (Negative); Opiate Screen Urine Negative (Negative); Phencyclidine Screen Urine Negative (Negative)
[2022-03-13] MEDS: DINOPROSTONE 10 MG VAG INSERT VAGINAL (17:15)
[2022-03-13] MEDS: LACTATED RINGERS 1,000 ML 125 ML IV CONT (17:29)
[2022-03-13] MEDS: ceFAZolin 2 GM/D5W 50 ML 2 GM/50 ML BAG IVPB (17:31)
--- NOTE | 2022-03-13 17:36 | LDADM ---
This patient, Pita Martinez, was admitted to Labor/Delivery/Recovery 107 on 03/13/22 at 15:44. Plans for labor, pain management and were discussed with patient. Patient/family oriented to hospital policies and general routines including ID bracelet, bed and alarms, visiting hours, pain management, procedures, bathroom and other care routines, personal items, smoking policy, room service/diet and guest tray routines, infant security routines, and visiting hours. Patient/Family are encouraged to report perceived risks to care and to ask questions if they do not understand what they are told or what they should do. See OBIX for further documentation.
[2022-03-14] VITALS (158 sets, daily range): BP systolic 79–171; BP diastolic 30–100; PULSE 63–159; RESP 18; TEMP 36.1–37.1; O2SAT 95–100
[2022-03-14] MEDS: LACTATED RINGERS 1,000 ML 125 ML IV CONT ×4 (02:24→15:04)
[2022-03-14] MEDS: OXYTOCIN 30 UNITS/NS 500 ML 30 UNITS/500 ML BAG IV CONT (05:43)
--- NOTE | 2022-03-14 09:15 | WPDOBADMIT ---
Obstetrics - Admit Note Admission Note: record reviewed. No pertinent additions to the history and/or any subsequent changes in the physical findings that are not consistent with the expected course of the were found. IOL, obesity, SVE 2/80/-2, AROM large amount of clear odorless fluid, IUPC and FSE placed, anticipate vaginal delivery Additions to the history and/or subsequent changes in the physical findings follow. None.
[2022-03-14] MEDS: ONDANSETRON INJ 4 MG/2 ML VIAL IV PUSH (09:45)
--- NOTE | 2022-03-14 16:54 | PM.OBPRVD ---
OB - Delivery Note Procedure Delivery date: 03/14/22 Procedure: vaginal delivery Induction method: AROM, Per Pitocin Protocol and Per Cervidil Protocol Delivery monitor: Internal FHT and Internal Uterine Route of delivery: Episiotomy description: None Laceration Description: Perineal - 1st Degree Delivery repair: vicryl Specimen: No Quantitative Blood Loss (ml): 180 Anesthesia type: Epidural Disposition: Floor Baby Date of : 03/14/22 Time of : 16:37 Weeks of gestation at delivery: 39 Infant gender: Female Weight (pounds): 6 Weight (ounces): 13 presentation: vertex position: Left Occiput Anterior Placenta delivery description: Spontaneous Cord Vessel Description: 3 Vessels, Nuchal Cord, Loose, Reduced and Delayed Cord Clamping score one minute: 8 score five minutes: 9 Narrative: mother and baby skin to skin in stable condition
[2022-03-14] MEDS: OXYTOCIN 30 UNITS/NS 500 ML 30 UNITS/500 ML BAG 125 UNITS IV CONT (17:12)
[2022-03-14] MEDS: IBUPROFEN 600 MG TABLET PO (20:47)
[2022-03-15 00:36] VITALS: BP 110/68; PULSE 87; RESP 18; TEMP 36.7; O2SAT 100
[2022-03-15 05:25] VITALS: BP 130/81; PULSE 73; RESP 14; TEMP 36.4; O2SAT 100
[2022-03-15 06:24] LABS: Hematocrit 27.9 % (37.0-47.0); Hemoglobin 9.2 g/dL (12.0-15.0)
--- NOTE | 2022-03-15 06:40 | PC.NURSE ---
Patient transferred to post room #284 via (W/C) at 1915. Support persons present. Oriented to unit, room, information board, rooming in, admission packet and security measures. Patient verbalizes understanding.
[2022-03-15 08:35] VITALS: BP 125/73; PULSE 73; RESP 16; TEMP 36.1; O2SAT 100
[2022-03-15] MEDS: DOCUSATE SODIUM 100 MG CAPSULE PO (08:42)
[2022-03-15] MEDS: POLYSACCHARIDE IRON COMPLEX 150 MG CAPSULE PO ×2 (08:42→17:33)
[2022-03-15] MEDS: IBUPROFEN 600 MG TABLET PO (08:43)
[2022-03-15] MEDS: ESCITALOPRAM OXALATE 10 MG TABLET PO (08:43)
[2022-03-15 09:17] LABS: Rapid Plasma Reagin Non-Reactive (NonReactive)
--- NOTE | 2022-03-15 10:33 | PM.OBPNVD ---
OB - PN: Subj Subjective Date/time seen: 03/15/22 10:33 Patient comments: no complaints and pain well controlled baby status: doing well and bottle feeding well Narrative: Would like DC home at 24 hours. OB - PN: Obj Data Labs CBC & Chem 7: 03/15/22 05:19 Labs: Laboratory Results - last 24 hr 03/13/22 03/15/22 16:21 05:19 Hgb 9.2 L Hct 27.9 L RPR Non-reactive OB - PN A/P Plan day: 1 Plan: routine care and discharge home Time Spent With Patient Time: Total time spent is greater than 50% in coordination of care (as documented) at patient's floor/unit and/or counseling patient: Time with patient: less than 15 minutes Exam Narrative: NAD abdomen soft, nontender, fundus firm below the umbilicus Extremities nontender, 1+ edema
--- NOTE | 2022-03-15 10:35 | PM.OBDSVD ---
DS: Admitting Diagnosis Discharge Date 03/15/22 Admitting Diagnosis term IUP DS: Discharge Diagnosis Discharge Diagnosis (1) , delivered: Code(s): O80 - Encounter for full-term uncomplicated delivery Status: Acute OB - DS: Summary Hospital Course Hospital Course: Piat was admitted for term labor. she proceeded to have an uncomplicated vaginal delivery and course and was discharged home on day 1. OB Procedures : Ultrasound OB Procedures Intrapartum: Spontaneous Vag Delivery OB Procedures: : None Peripartum Data Delivery Method: Natural Vaginal complications: none Status at Discharge Functional status at discharge: independent ambulation Time Spent with Patient Time attestation: Total time spent providing and/or coordinating discharge services: Exam Narrative: NAD abdomen soft, appropriately tender Ext non tender, 1+ edema DS: Data Data Completed and Pending Labs on day of discharge: Labs from last 24 hours 03/15/22 03/13/22 05:19 16:21 Hgb 9.2 L Hct 27.9 L RPR Non-reactive Discharge Plan Discharge Attending physician on discharge: Talia Del Toro Discharging Clinician: Talia Del Toro Anticipated Discharge Date/Time: 03/15/22 18:00 Patient Disposition: Home, Self-Care Activity: pelvic rest Diet: regular Patient Instructions: Antibiotic Form Stand Alone Forms: General Discharge Information Follow-up/Referrals: Sol Lee CNM [Primary Care Provider] - 4 Weeks Discharge Medications: Continued escitalopram oxalate 10 mg tablet 10 tablet PO DAILY PNV no.76-veus-[id number] acid 30-975 mg-mcg Tablet 1 tablet PO DAILY Date of admission: 03/13/22 15:44 Primary Care Provider: Sol Lee Admitting Provider: Americo Pritchett Attending physician on admission: Americo Pritchett Condition: Stable
--- NOTE | 2022-03-15 11:42 | WPDANLDPN2 ---
Anes-Prog Note L&D Date/Time: 03/15/22 11:42 Comfortable throughout: labor and delivery Neuraxial method: epidural Epidural/Spinal procedure site: clean & non-tender Neuro status: Neuro function grossly intact. Cardiovascular status: normal Respiratory status: normal Airway patency: baseline Mental status: baseline Post-Op hydration status: normal Vital Signs: Last Vital Signs Temp 97.0 F L 03/15/22 08:35 Pulse 73 03/15/22 08:35 Resp 16 03/15/22 08:35 BP 125/73 03/15/22 08:35 Pulse Ox 100 03/15/22 08:35 O2 Del Method Room Air 03/15/22 08:35 Pain score (VAS): 0 I/O: Intake & Output 03/14/22 03/15/22 03/15/22 23:59 07:59 15:59 Intake Total 500 240 Output Total 255 Balance 245 240 Post-procedural complaints: none Patient feedback: Patient satisfied with anesthetic care.
[2022-03-15 12:10] VITALS: BP 127/76; PULSE 87; RESP 16; TEMP 36.2; O2SAT 99
[2022-03-17 10:44] VITALS: BP 146/88; PULSE 81; RESP 20; TEMP 36.6; O2SAT 100
== END 2022-03-15 19:24 | disposition home or self-care (01) | DRG 560 ==
LOC: ANHOB2 03-15 18:01 → ANHLDR 03-17 12:40
PROVIDERS: Admitting Provider Obstetrics & Gynecology; PCP Advanced Practice Midwife; Visit Provider Obstetrics & Gynecology
DX: O99.214 Obesity complicating childbirth (principal); E66.01 Morbid (severe) obesity due to excess calories; O70.0 First degree perineal laceration during delivery; O69.81X0 Labor and delivery complicated by cord around neck, without compression, not applicable or unspecified; O99.824 Streptococcus B carrier state complicating childbirth; Z3A.39 39 weeks gestation of pregnancy; Z37.0 Single live birth
CPT/HCPCS: 36415; 59025; 80053; 80307; 81001; 82570; 84156; 84550; 85014; 85018; 85025; 86592; 86850; 86900; 86901; 87086; 99199; A9270; J0690; J2405; J2590; J2795; J7120

== ENCOUNTER 2022-07-15 08:16 | Emergency (ER) | payer OTHER, SELFPAY ==
[2022-07-15 08:29] VITALS: BP 147/81; PULSE 81; RESP 16; TEMP 36.8; O2SAT 99
--- NOTE | 2022-07-15 09:47 | ED.SKABFB ---
HPI - Skin/Abscess/Foreign Bdy General Chief complaint: Skin/Abscess/Foreign Body Stated complaint: top lip swollen Time Seen by Provider: 07/15/22 09:22 Source: patient and RN notes reviewed Mode of arrival: ambulatory Limitations: no limitations History of Present Illness HPI narrative: This is a 26-year-old female that presents to the emergency department for upper lip swelling noted since yesterday morning. Reports a blistering painful lesion to the upper lip. She tried taking some Benadryl with little relief. No new soaps, lotions, or lipstick used recently. No swelling of her mouth or throat. Does report she has had a cold sore before. Denies fevers. Related Data Home Medications Medication Instructions Recorded Confirmed escitalopram oxalate 10 mg tablet 10 tablet PO DAILY 12/24/21 03/13/22 vit#24-iron amino acid 1 tablet PO DAILY 12/24/21 03/13/22 chelat-folic acid 30 mg-975 mcg tablet Allergies Allergy/AdvReac Type Severity Reaction Status Date / Time Penicillins Allergy Hives Verified 07/15/22 08:30 sulfabenzamide Allergy Hives Verified 07/15/22 08:30 Review of Systems Review of Systems: CONSTITUTIONAL: Denies fever, ENT: Denies sore throat SKIN: Reports rash. Denies itching. All systems reviewed & are unremarkable except as noted in HPI and below PMFSH Past Medical History Medical History No active medical problems Family History Family History (Updated 03/01/22 @ 13:38 by Lalit Sandhu RN) Mother Heart disease Hypertension Stomach cancer Anemia Grandparent Lung cancer Social History Social History (Updated 07/15/22 @ 09:58 by Elke Luna PA-C) Smoking status: Never smoker Spiritual care concerns: No Exam Narrative: GENERAL: Well-appearing, well-nourished, and in no acute distress. HEAD: Normocephalic, atraumatic. EYES: EOMI. ENT: Mucous membranes moist. Oropharynx without tonsillar hypertrophy exudate or other lesions. Blistering lesion on an erythematous base to the mid upper lip NECK: Supple. No adenopathy or masses. CHEST: No respiratory distress HEART: Regular rate EXTREMITIES: Normal range of motion. No edema. SKIN: Warm, dry, no rash. NEURO: No focal deficits. Alert and oriented x3. PSYCH: Normal mood and affect Course Vital Signs Vital signs: Vital Signs Temperature 98.2 F 07/15/22 08:29 Pulse Rate 81 07/15/22 08:29 Respiratory Rate 16 07/15/22 08:29 Blood Pressure 147/81 H 07/15/22 08:29 Pulse Oximetry 99 07/15/22 08:29 Temperature 98.2 F 07/15/22 08:29 Pulse Rate 81 07/15/22 08:29 Respiratory Rate 16 07/15/22 08:29 Blood Pressure 147/81 H 07/15/22 08:29 Pulse Oximetry 99 07/15/22 08:29 MDM - Skin/Abscess/Foreign Bdy MDM Narrative Medical decision making narrative: Patient presents to the emergency department for swelling of her upper lip. She is afebrile and nontoxic-appearing. 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 She will be started on oral Valtrex and was instructed on oiye-qyw-yresicg pain medications as needed for cold sore. She is to follow-up with her primary care provider. She was given warnings to return to the ER Differential Diagnosis Differential diagnosis: Likely abscess of skin or subcutaneous tissue, urticaria, cellulitis, eczema, insect bites, contact dermatitis and other (herpes simplex) Critical Care Time Critical Care Time Critical Care Time: No Discharge Plan Discharge Clinical Impression: Herpes labialis Patient Disposition: Home, Self-Care Condition: Stable Instructions: Oral Herpes Simplex Virus Infections (ED) Additional Instructions: Return to the emergency department if you experience fever, swelling of your mouth or throat, difficulty breathing, or any other symptoms that are concerning to you Take Valacyclovir 2 g twice today. You may also use [id number] topic
[2022-07-15 10:13] VITALS: BP 132/88; PULSE 88; RESP 16; O2SAT 98
== END 2022-07-15 10:15 | disposition home or self-care (01) ==
PROVIDERS: Emergency Provider Emergency Medicine; PCP Advanced Practice Midwife
DX: B00.1 Herpesviral vesicular dermatitis (principal)
CPT/HCPCS: 99283

== ENCOUNTER 2022-07-30 13:09 | Emergency (ER) | payer OTHER, SELFPAY ==
--- NOTE | ~2022-07-30 | CT_ITS ---
Non-contrast Head CT History: Headache Technique: Axial non-contrast imaging of the brain was performed. Dose reduction technique was used on this scan by utilizing automated exposure control and iterative reconstruction technique. The dose -length product (DLP) was 605.33 mGy-cm. Findings: There is no evidence of intracranial hemorrhage, mass lesion, or acute infarct. Brain par enchyma appears normal. The ventricles and subarachnoid spaces are normal in size. The calvarium ap pears normal. The visualized paranasal sinuses and mastoid air cells are clear. Impression: No significant abnormality seen. Reviewed, dictated and finalized at location . PREPARER Impression: No significant abnormality seen.
--- NOTE | ~2022-07-30 | XR_ITS ---
Portable chest x-ray Comparison: None Clinical History: Headache, pain Findings: Lungs are clear, without focal consolidation or pleural effusion. Cardiomediastinal silho uette is unremarkable. Bones and soft tissues are unremarkable. Impression: Normal chest. Reviewed, dictated and finalized at [facility]. [facility] Impression: Normal chest.
[2022-07-30 13:12] VITALS: BP 160/98; PULSE 67; RESP 18; TEMP 35.9; O2SAT 97
--- NOTE | 2022-07-30 13:43 | ED.HA ---
HPI - Headache General Chief Complaint: Headache Stated Complaint: headache Time Seen by Provider: 07/30/22 13:41 Source: patient Mode of arrival: ambulatory Limitations: no limitations History of Present Illness HPI Narrative: Patient is 27 years old white female came to the emergency room by private car complaining of intermittent generalized headache, sharp, off and on for the last 2 months. Patient noticed that sexual activity triggered the headache. Sometimes associated with nausea, no vomiting. Patient also report some spots and vision blurry during the beginning of the headache not anymore over the last few weeks. Patient denies any relieving factors. She denies any fever, chills, chest pain, shortness of breath, back pain or focal neurodeficit.. Patient is status post vaginal delivery 4 months ago. History of depression. And hypothyroidism, does not take medication because cannot afford it. Patient smokes marijuana daily, no tobacco or alcohol. Patient on Lexapro 10 mg once a day Related Data Home Medications Medication Instructions Recorded Confirmed escitalopram oxalate 10 mg tablet 10 tablet PO DAILY 12/24/21 03/13/22 vit#24-iron amino acid 1 tablet PO DAILY 12/24/21 03/13/22 chelat-folic acid 30 mg-975 mcg tablet Allergies Allergy/AdvReac Type Severity Reaction Status Date / Time Penicillins Allergy Hives Verified 07/30/22 14:27 sulfabenzamide Allergy Hives Verified 07/30/22 14:27 Review of Systems Review of Systems: All systems reviewed & are unremarkable except as noted in HPI and below PMFSH Past Medical History Medical History No active medical problems Family History Family History Mother Heart disease Hypertension Stomach cancer Anemia Grandparent Lung cancer Social History Social History Smoking status: Never smoker Spiritual care concerns: No Exam Narrative: General appearance: Well-developed, well-nourished, obese, does not look in pain or distress Skin: Normal color Head: Normocephalic, nontraumatic Eyes: Clear conjunctiva ENT: Oropharynx normal, ears normal, nose normal Neck: Supple, nontender Chest and respiratory: Airway patent, no respiratory distress, no accessory muscle use Heart: Regular rate/rhythm Abdomen: Soft, nontender, no organomegaly, quiet bowel sounds Vascular: Normal peripheral pulses, normal capillary refill. 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 Date: 07/30/22 Time: 16:13 Vital Signs Vital signs: Vital Signs Temperature 35.9 C L 07/30/22 13:12 Pulse Rate 67 07/30/22 13:12 Respiratory Rate 18 07/30/22 13:12 Blood Pressure 160/98 H 07/30/22 13:12 Pulse Oximetry 97 07/30/22 13:12 Oxygen Delivery Room Air 07/30/22 13:12 Temperature 35.9 C L 07/30/22 13:12 Pulse Rate 62 07/30/22 14:35 Respiratory Rate 15 07/30/22 14:35 Blood Pressure 140/80 07/30/22 14:35 Pulse Oximetry 98 07/30/22 14:35 Oxygen Delivery Room Air 07/30/22 13:12 MDM - Headache MDM Narrative Medical decision making narrative: Patient is 27 years old white female presents with intermittent generalized headache for the last 2 months. Noticed headache during sexual intercourse, denies any relieving factors, associated with nausea, no vomiting or focal neurodefic
[2022-07-30 14:19] LABS: Add Urine Microscopic? NO; Appearance Urine Clear (Clear); Bilirubin Urine Negative (Negative); Blood Urine Negative (Negative); Color Urine Yellow (Yellow); Glucose Urine UA Negative (Negative); Ketones Urine Negative (Negative); Leukocyte Esterase Ur Negative LEU/UL (Negative); Mucus Urine Rare /lpf; Nitrate Urine Negative (Negative); Protein Urine Negative (Negative); RBC Urine 0-2 /hpf (0-2); Specific Grav Ur 1.025 (1.001-1.035); Squamous Epithelial Cell Urine Rare /hpf (Few); Urobilinogen Urine 0.2 mg/dL (<2.0); WBC Urine 0-3 /hpf; pH Urine 6.5 (5.0-9.0)
[2022-07-30] MEDS: SODIUM CHLORIDE 0.9% IV 1,000 ML 999 ML IV CONT (14:28)
[2022-07-30] MEDS: METOCLOPRAMIDE HCL INJ 10 MG/2 ML VIAL IV PUSH (14:29)
[2022-07-30 14:31] LABS: Basophils Absolute Auto 0.1 K/mm3 (0.0-0.1); Basophils Percent Auto 0.7 % (0.2-1.2); Eosinophils Absolute Auto 0.2 K/mm3 (0-0.3); Eosinophils Percent Auto 2.4 % (0-4.4); Hematocrit 39.1 % (37.0-47.0); Hemoglobin 12.4 g/dL (12.0-15.0); Immature Granulocyte Absolute 0.03 K/mm3 (0.00-0.031); Immature Granulocyte Percent A 0.3 % (0-0.5); Lymphocytes Absolute Auto 3.15 K/mm3 (0.9-3.2); Lymphocytes Percent Auto 31.9 % (18.3-44.2); Mean Corpuscular HGB Conc 31.7 g/dl (32-36); Mean Corpuscular Hemoglobin 26.6 pg (26-34); Mean Corpuscular Volume 83.9 fl (80-100); Mean Platelet Volume 9.2 fl (7.4-10.4); Monocytes Absolute Auto 0.7 K/mm3 (0.1-0.6); Monocytes Percent Auto 7.2 % (2.6-8.5); Neutrophils Absolute Auto 5.7 K/mm3 (1.3-6.7); Neutrophils Percent Auto 57.5 % (45.5-73.1); Platelet Count Result 330 k/mm3 (150-375); Red Blood Count 4.66 M/mm3 (4.2-5.4); Red Cell Distribution Width 14.4 % (11.5-14.5); White Blood Count 9.9 K/mm3 (4.5-10.0)
[2022-07-30] MEDS: KETOROLAC 30 MG/ML VIAL (*BKC) IV PUSH (14:31)
[2022-07-30] MEDS: diphenhydrAMINE HCl INJ 50 MG/ML VIAL 25 MG IV PUSH (14:32)
[2022-07-30] MEDS: LORazepam INJ (*CRX) 2 MG/ML VIAL 1 MG IV PUSH (14:33)
[2022-07-30 14:35] VITALS: BP 140/80; PULSE 62; RESP 15; O2SAT 98
[2022-07-30 14:41] LABS: Alanine Aminotransferase 20 U/L (6-35); Alkaline Phosphatase 70 U/L (38-126); Anion Gap 6 mmol/L (8-16); Aspartate Amino Transferase 28 U/L (14-36); Bilirubin,Total 0.4 mg/dL (0.2-1.3); Blood Urea Nitrogen 14 mg/dL (7-17); Calcium 9.1 mg/dL (8.4-10.2); Carbon Dioxide 26 mmol/L (22-30); Chloride 108 mmol/L (98-107); Estimated CRCL calculation 180 ml/min; Estimated Glomerular Filt Rate > 60; Glucose 100 mg/dL (65-110); Sodium 140 mmol/L (137-145)
[2022-07-30 14:43] LABS: Amphetamine Screen Urine Negative (Negative); Barbiturate Screen Urine Negative (Negative); Benzodiazepines Screen Urine Negative (Negative); Cannabinoid Screen Urine Positive (Negative); Cocaine Screen Urine Negative (Negative); Methadone Screen Urine Negative (Negative); Opiate Screen Urine Negative (Negative); Phencyclidine Screen Urine Negative (Negative)
== END 2022-07-30 15:49 | disposition home or self-care (01) ==
PROVIDERS: Emergency Provider Emergency Medicine; PCP Advanced Practice Midwife
DX: R51.9 Headache, unspecified (principal)
CPT/HCPCS: 36415; 70450; 71045; 80053; 80307; 81003; 81025; 84443; 85025; 96361; 96374; 96375; 99284; J1200; J1885; J2060; J2765; J7030

== ENCOUNTER 2024-01-23 17:03 | Emergency (ER) | payer OTHER, SELFPAY ==
--- NOTE | ~2024-01-23 | US_ITS ---
EXAMINATION: US soft tissue UE RT DATE: 01/23/2024 18:22 INDICATION: cyst? right wrist . TECHNIQUE: Grayscale and Doppler ultrasound images of the right wrist were obtained. COMPARISON: None. FINDINGS: In the area of clinical concern is a 2.0 x 0.5 x 1.9 cm smoothly marginated, thin-walled, s erpiginous, lobular, anechoic, avascular fluid collection which appears to emanate from the radiocarp al joint space. This cystic mass abuts the radial artery and slightly displaces it. IMPRESSION: 2 cm cystic mass in the area of clinical concern, in the absence of signs of infection this most like ly represents a ganglion cyst. Reviewed, dictated and finalized at location K. IMPRESSION: 2 cm cystic mass in the area of clinical concern, in the absence of signs of in fection this most likely represents a ganglion cyst.
[2024-01-23 17:07] VITALS: BP 130/78; PULSE 80; RESP 20; TEMP 36.1; O2SAT 100
--- NOTE | 2024-01-23 17:10 | ED.UPPEXIN ---
HPI - Extremity Injury (Upper) General Chief Complaint: Extremity Injury, Upper <TACHO Clemens Last Filed: 01/24/24 09:46> Stated Complaint: wrist pain <TACHO Clemens Last Filed: 01/24/24 09:46> Time Seen by Provider: 01/23/24 17:10 <TACHO Clemens Last Filed: 01/24/24 09:46> Focused HPI: This is a 28 year old female that presents to the ER for an area of swelling to the right wrist. Reports a possible cyst. Reports she just noticed this today. Reports it was bothering her at work. No recent injury. Denies fever or erythema. GENERAL: Well-appearing, well-nourished, and in no acute distress. HEAD: Normocephalic, atraumatic. CHEST: Clear to auscultation. ?No respiratory distress. HEART: Regular rate and rhythm.? NEURO: ?Alert and oriented x3. Patient screened in triage and initial orders placed.? ?Additional care and disposition to be based upon?diagnostic testing and treatment. <TACHO Clemens Last Filed: 01/24/24 09:46> Source: patient <TACHO Frost Last Filed: 01/23/24 20:35> Mode of arrival: ambulatory <TACHO Frost Last Filed: 01/23/24 20:35> Limitations: no limitations <TACHO Frost Last Filed: 01/23/24 20:35> History of Present Illness HPI narrative: Agree with above HPI. Patient is a 28-year-old female who presents the ED with report of right wrist pain. 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 Noticed an area of swelling over her volar wrist. She then prompted here for further evaluation. She has not taken anything for pain. Does not want anything for pain currently. Denies skin changes. Denies numbness/tingling. <TACHO Frost Last Filed: 01/23/24 20:35> Related Data Home Medications: Home Medications Medication Instructions Recorded Confirmed escitalopram oxalate 10 mg tablet 10 tablet PO DAILY 12/24/21 03/13/22 vit#24-iron amino acid 1 tablet PO DAILY 12/24/21 03/13/22 chelat-folic acid 30 mg-975 mcg tablet <Elke Luna PA-C - Last Filed: 01/24/24 09:46> Allergies/Adverse Reactions: Allergies Allergy/AdvReac Type Severity Reaction Status Date / Time Penicillins Allergy Hives Verified 01/23/24 17:07 sulfabenzamide Allergy Hives Verified 01/23/24 17:07 <Elke Luna PA-C - Last Filed: 01/24/24 09:46> Review of Systems Review of Systems: CONSTITUTIONAL: Denies fever, chills, or sweats. MUSCULOSKELETAL: See HPI. NEUROLOGIC: Denies headache, dizziness, numbness, or weakness. <Radha Hernandez PA-C - Last Filed: 01/23/24 20:35> All systems reviewed & are unremarkable except as noted in HPI and below <Radha Hernandez PA-C - Last Filed: 01/23/24 20:35> [facility] Past Medical History Medical History: Medical History No active medical problems <Elke Luna PA-C - Last Filed: 01/24/24 09:46> Family History Family History: Family History Mother Heart disease Hypertension Stomach cancer Anemia Grandparent Lung cancer <Elke Luna PA-C - Last Filed: 01/24/24 09:46> Social History Social History: Social History Smoking status: Never smoker Spiritual care concerns: No <Elke Luna PA-C - Last Filed: 01/24/24 09:46> Exam Narrative: GENERAL: Well appearing, morbidly obese with BMI 50.2, non-toxic, in no acute distress. HEAD: Normocephalic, atraumatic. RESPIRATORY: Airway patent, respirations nonlabored. CARDIOVASCULAR: Regular rate and rhythm. Radial pulses 2+ and easily palpable. MUSCULOSKELETAL: Moves all extremities. No gross deformities. Area of swelling and cystic structure palpated on volar surf
--- NOTE | 2024-01-23 18:33 | ED.UPPEXIN ---
HPI - Extremity Injury (Upper) General Chief Complaint: Extremity Injury, Upper Stated Complaint: wrist pain Time Seen by Provider: 01/23/24 17:10 Source: patient Mode of arrival: ambulatory Limitations: no limitations History of Present Illness HPI narrative: patient is a 28-year-old female who presents the ED with report of right wrist pain. 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 Noticed an area of swelling over her volar wrist. She then prompted here for further evaluation. She has not taken anything for pain. Does not want anything for pain currently. Denies skin changes. Denies numbness/tingling. Related Data Home Medications Medication Instructions Recorded Confirmed escitalopram oxalate 10 mg tablet 10 tablet PO DAILY 12/24/21 03/13/22 vit#24-iron amino acid 1 tablet PO DAILY 12/24/21 03/13/22 chelat-folic acid 30 mg-975 mcg tablet Allergies Allergy/AdvReac Type Severity Reaction Status Date / Time Penicillins Allergy Hives Verified 01/23/24 17:07 sulfabenzamide Allergy Hives Verified 01/23/24 17:07 Review of Systems Review of Systems: CONSTITUTIONAL: Denies fever, chills, or sweats. MUSCULOSKELETAL: See HPI. NEUROLOGIC: Denies headache, dizziness, numbness, or weakness. All systems reviewed & are unremarkable except as noted in HPI and below PMFSH Past Medical History Medical History No active medical problems Family History Family History Mother Heart disease Hypertension Stomach cancer Anemia Grandparent Lung cancer Social History Social History Smoking status: Never smoker Spiritual care concerns: No Exam Narrative: GENERAL: Well appearing, morbidly obese with BMI 50.2, non-toxic, in no acute distress. HEAD: Normocephalic, atraumatic. RESPIRATORY: Airway patent, respirations nonlabored. CARDIOVASCULAR: Regular rate and rhythm. Radial pulses 2+ and easily palpable. MUSCULOSKELETAL: Moves all extremities. No gross deformities. area of swelling and cystic structure palpated on volar surface of right wrist, along radial edge. Mild focal tenderness to palpation. sensation intact throughout hands and fingers. Capillary refill intact. SKIN: Warm, dry, normal color. NEURO: A&O X3. Speech clear. PSYCHIATRIC: Appropriate mood and affect. Normal interaction. Course Vital Signs Vital signs: Vital Signs Temperature 96.9 F L 01/23/24 17:07 Pulse Rate 80 01/23/24 17:07 Respiratory Rate 20 01/23/24 17:07 Blood Pressure 130/78 01/23/24 17:07 Pulse Oximetry 100 01/23/24 17:07 Oxygen Delivery Room Air 01/23/24 17:07 Temperature 96.9 F L 01/23/24 17:07 Pulse Rate 80 01/23/24 17:07 Respiratory Rate 20 01/23/24 17:07 Blood Pressure 130/78 01/23/24 17:07 Pulse Oximetry 100 01/23/24 17:07 Oxygen Delivery Room Air 01/23/24 17:07 MDM - Extremity Injury (Upper) MDM Narrative Medical decision making narrative: Patient presented to ED with pain and swelling to right volar wrist. Exam seems most consistent with ganglion cyst. Patient did not want anything for pain in the ED. She is neurovascularly intact. Soft tissue ultrasound obtained Medical Records Attestation: I reviewed the patient's medical records. Imaging Data Attestation: I personally reviewed and interpreted this imaging study as follows: Discharge Plan Discharge Prescriptions: No Action escitalopram oxalate 10 mg tablet 10 tablet PO DAILY PNV no.[id number] acid 30-975 mg-mcg Tablet 1 tablet PO DAILY valacyclovir 1 gram tablet 2,000 mg PO Q12H 1 Days Qty: 4 0RF Follow-up/Referrals: Sol Lee CNM [Primary Care Provider] -
== END 2024-01-23 20:12 | disposition home or self-care (01) ==
PROVIDERS: Emergency Provider Physician Assistant; PCP Advanced Practice Midwife
DX: M67.431 Ganglion, right wrist (principal)
CPT/HCPCS: 76882; 99284

== ENCOUNTER 2024-02-14 13:40 | Emergency (ER) | payer OTHER, SELFPAY ==
[2024-02-14] VITALS (8 sets, daily range): BP systolic 127–146; BP diastolic 73–85; PULSE 66–77; RESP 15–18; TEMP 36.1; O2SAT 97–100
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
--- NOTE | 2024-02-14 13:45 | ECG_ITS ---
Test Date: 2024-02-14 13:54:40 Measurements Intervals [place] Rate: 73 P: 13 CA: 168 QRS: 24 QRSD: 109 T: 23 QT: 390 QTc: 431 Interpretive Statements SINUS RHYTHM No previous ECG available for comparison Electronically Signed On 02-14-2024 14:52:30 CDT by Abdi Mukherjee M.D.
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
[2024-02-14 16:09] LABS: Basophils Absolute Auto 0.1 K/mm3 (0.0-0.1); Basophils Percent Auto 0.4 % (0.2-1.2); Eosinophils Absolute Auto 0.1 K/mm3 (0-0.3); Eosinophils Percent Auto 0.7 % (0-4.4); Hematocrit 40.1 % (37.0-47.0); Hemoglobin 13.5 g/dL (12.0-15.0); Immature Granulocyte Absolute 0.04 K/mm3 (0.00-0.031); Immature Granulocyte Percent A 0.4 % (0-0.5); Lymphocytes Absolute Auto 3.96 K/mm3 (0.9-3.2); Mean Corpuscular HGB Conc 33.7 g/dl (32-36); Mean Corpuscular Hemoglobin 28.4 pg (26-34); Mean Corpuscular Volume 84.2 fl (80-100); Mean Platelet Volume 9.5 fl (7.4-10.4); Monocytes Absolute Auto 0.6 K/mm3 (0.1-0.6); Monocytes Percent Auto 5.5 % (2.6-8.5); Neutrophils Absolute Auto 6.6 K/mm3 (1.3-6.7); Platelet Count Result 292 k/mm3 (150-375); Red Blood Count 4.76 M/mm3 (4.2-5.4); Red Cell Distribution Width 12.7 % (11.5-14.5); White Blood Count 11.3 K/mm3 (4.5-10.0)
[2024-02-14] MEDS: SODIUM CHLORIDE 0.9% IV 1,000 ML 999 ML IV CONT (16:20)
[2024-02-14 16:21] LABS: Alanine Aminotransferase 24 U/L (6-35); Albumin Level 4.5 g/dL (3.5-5.1); Alkaline Phosphatase 80 U/L (38-126); Anion Gap 9 mmol/L (4-12); Aspartate Amino Transferase 35 U/L (14-36); Bilirubin,Total 0.4 mg/dL (0.2-1.3); Blood Urea Nitrogen 11 mg/dL (7-17); Calcium 9.4 mg/dL (8.4-10.2); Carbon Dioxide 25 mmol/L (22-30); Chloride 104 mmol/L (98-107); Estimated CRCL calculation 177 ml/min; Estimated Glomerular Filt Rate > 60; Glucose 91 mg/dL (65-110); Potassium 3.6 mmol/L (3.4-5.0); Sodium 138 mmol/L (137-145)
[2024-02-14 16:46] LABS: Influenza A QL RT-PCR Negative (Negative); Influenza B QL RT-PCR Negative (Negative); RSV RNA, RT-PCR Negative (Negative); SARS-CoV-2 RNA PCR Negative (Negative)
[2024-02-14 17:57] LABS: BEDSIDEPREGUCG Negative
[2024-02-14 18:01] LABS: Add Urine Microscopic? YES; Appearance Urine Clear (Clear); Bacteria Urine None Seen /hpf; Bilirubin Urine Negative (Negative); Blood Urine Negative (Negative); Color Urine Yellow (Yellow); Glucose Urine UA Negative (Negative); Ketones Urine Trace mg/dL (Negative); Leukocyte Esterase Ur Trace LEU/UL (Negative); Nitrate Urine Negative (Negative); Non Pathogenic Casts 0-2; Protein Urine Negative (Negative); Specific Grav Ur 1.013 (1.001-1.035); Squamous Epithelial Cell Urine Occasional /hpf (Few); Urobilinogen Urine 0.2 mg/dL (<2.0); WBC Urine 0-5 /hpf (0-3)
== END 2024-02-14 18:42 | disposition home or self-care (01) ==
PROVIDERS: Emergency Provider Emergency Medicine; PCP Advanced Practice Midwife
DX: R55 Syncope and collapse (principal); S06.0XAD Concussion with loss of consciousness status unknown, subsequent encounter; V89.2XXD Person injured in unspecified motor-vehicle accident, traffic, subsequent encounter; Z20.822 Contact with and (suspected) exposure to COVID-19
CPT/HCPCS: 36415; 70450; 73080; 80053; 81001; 81025; 85025; 87637; 93005; 96360; 99284; J7030

== ENCOUNTER 2024-03-21 01:39 | Day surgery (SDC) | payer OTHER, SELFPAY ==
[2024-03-14 09:36] VITALS: BMI 50.9
--- NOTE | 2024-03-14 10:27 | PC.NURSE ---
Addendum entered by Adriana Haider RN 03/15/24 12:59: Pt instructed no food after midnight and up to 20 oz of clear liquids only until 0245. Original Note: Report to the Outpatient Waiting Room, entrance under the green pavilion located off [facility], at time __0845 on date ____03/21/24___. Planned Procedure Time: ____1045____.? Time changes happen often and if your time is changed the preop area will call you the afternoon before. - You and your visitor will be asked to self-screen and do not enter if you have any COVID symptoms. Please call surgeon if you need to reschedule. - A mask is optional within the hospital at this time. Patients may have clear liquids (water, carbonated beverages, clear teas, apple juice) until 3 hours prior to surgery with a maximum of 20 ounces. - No food from midnight until time of surgery and no smoking - Infants may have breast milk until 4 hours before surgery, infant formula 6 hours prior to surgery. - Children will be allowed to drink immediately following surgery.? If applicable, please bring a bottle or sippy cup to assist with drinking. Juice, water, soda, and popsicles are readily available.? For infants on formula, please bring formula the day of surgery.? Pacifiers are allowed. Take only the following medications with a SIP of water on the morning of surgery: none DO NOT STOP ANY OF YOUR OTHER PRESCRIPTION MEDICATIONS PRIOR TO SURGERY EXCEPT THE FOLLOWING Medications to discontinue per physician does not take prescribed medications____ Date to take last dose N/A____ Please no make-up, nail telugu, hairspray, perfume, deodorant, or body powder the day of surgery.? No jewelry (including any body piercings) or valuables the day of surgery, leave them at home.? Please take a shower or bath the night before, or the morning of, surgery with an antibacterial soap.? Wear comfortable, loose fitting clothing.? Children are encouraged to wear pajamas. - Jewelry must be removed prior to entering the operating room.? Rings and piercings that are not removed may be cut off. - The hospital will not accept responsibility for valuables.? - Please leave all valuables, including medications, at home the day of surgery. If you are going home after surgery, a licensed garbage collector driver must drive you home.? - NO public transportation without another adult if you receive anesthesia. - We recommend that an adult stay with you for 24 hours following discharge. - We also recommend that you do not drive, make important decision, drink alcoholic beverages, or take any drugs that were not prescribed by your health care provider for at least 24 hours after your discharge time. For Pediatric surgeries, we recommend two adults accompany the child home. Follow any additional instructions given to you from your surgeon. Telephone instructions given to ___Pita Martinez___and asked if any additional questions and then verbalized understanding. Patient advised to call surgeon office or pre surgery nurse liaison [phone] if any additional questions.
--- NOTE | 2024-03-21 07:10 | PM.HPGS ---
History of Present Illness History of Present Illness Chief complaint: ganglion right wrist Narrative: Patient seen and examined in pre-operative holding area. No interval change in medical history or symptoms. Patient recalls previous discussion of benefits and alternatives to procedure. Continues to desire to proceed with right volar wrist ganglion excision. Reviewed procedure, post-op expectations and risks including but not limited to bleeding, infection, recurrence, injury to tendon/nerve/vessel, decreased hand function, stiffness, RSD, no change or worsening of symptoms. I discussed the possible use of assistants and their participation in the case. Patient stated understanding and signed the consent form wishing to proceed. Review of Systems Review of Systems: All systems reviewed & are unremarkable except as noted in HPI and below PMFSH Past Medical History Medical History No active medical problems Family History Family History Mother Heart disease Hypertension Stomach cancer Anemia Grandparent Lung cancer Social History Social History Smoking status: Never smoker Alcohol intake: current Drinks per week: 2 Substance use: current Substance use type: marijuana Other substance usage details: daily Living arrangements: with family Spiritual care concerns: No Meds Home Medications and Allergies Home Medications Medication Instructions Recorded Confirmed Type No Home Medications 03/14/24 03/14/24 History Allergies Allergy/AdvReac Type Severity Reaction Status Date / Time Penicillins Allergy Hives Verified 03/14/24 09:34 sulfabenzamide Allergy Hives Verified 03/14/24 09:34 Exam Narrative: unchanged Assessment and Plan Assessment and plan (1) Ganglion cyst of volar aspect of right wrist: Code(s): M67.431 - Ganglion, right wrist Status: Acute Assessment and Plan: cont as abovve
--- NOTE | 2024-03-21 07:10 | W.PM.PROC2 ---
Procedure Note - Detailed Date of Procedure 03/21/24 Pre-op Diagnosis ganglion right wrist Post-op Diagnosis Same Procedure Performed right volar wrist ganglion excision Surgeon Yenifer Daniels MD Overlay Operator nicholas shannon pa-c Anesthesia MAC Description of Procedure INFORMED CONSENT: The patient was seen and examined and marked in the pre-op area.? The patient signed the consent form. PROCEDURE IN DETAIL:The patient taken back to OR on the stretcher in supine position. Time out performed with anesthesia, surgeon and staff agreeing on patient's name site and surgery to be performed SCDs were placed on the lower extremities and inflated. A tourniquet was placed on {right} upper extremity and antibiotics given IV After anesthesia administered sedation I injected {6}cc 1%lido with epi and 0.5% marcaine plain at the operative site The?{right upper extremity}?was prepped and draped in sterile fashion the??{right upper extremity} was? exsanguinated with Esmarch bandage proximal to the mass and tourniquet inflated to 250mmHg I proceeded with making an inciion over the mass along lines of patients's tattoo with 15 blade scalpel through skin and dermis. Littler scissors were used to spread thorugh subq tissue down to cystic mass. I proceeded with circumferential dissection around this cyst own to volar wrist capsule and transected it with bipolat cautery. The radial artery was indentified and protected throughout the procedure. I irrigated with normal saline and repaired the capsular defect with 5-0 vicryl. The tourniquet was let down and hemostasis obtained with bipolar cautery. The radial artery was patent and hand warm and well pefused. 4-0 vicryl used for dermis and 4-0 monocryl for subcuticular closure. A dressing of Dermabond, 4x4, froylan, and a volar splint was applied for patient safety, security, and comfort and secured with an stephanie bandage after the tourniquet was let down noting the hand was warm and well perfused. The patient was then awaken from anesthesia and transferred to the recovery room in stable condition.? Complications - none EBL- 2cc Disposition - home in stable conditions Nicholas Shannon PA-C was essential for positioning, retractiion, closure and dressing placement AM Billing Surgery - Charge Forward: Surgery Billing ([id number] for nicholas)
[2024-03-21 10:00] VITALS: BP 148/96; PULSE 71; RESP 14; TEMP 36.2; O2SAT 100
[2024-03-21] MEDS: LACTATED RINGERS 1,000 ML 30 ML IV CONT (10:00)
[2024-03-21] MEDS: LIDO 1%/EPINEPHRINE 1:100,000 50 ML VIAL 10 ML INFILTRATE (10:55)
--- NOTE | 2024-03-21 11:11 | WPDANESEPPF ---
Anes - Initial Pre Proc Eval Procedure: Operation Date: 03/21/24 10:45 Proposed Procedures p Right Volar Wrist Ganglion Excision - Yenifer Daniels MD Date/Time: 03/21/24 11:11 Surgeon: Yenifer Daniels MD Pre Op Diagnosis: ganglion right wrist Patient Data Age: 28 Gender: F Height: 1.68 m Weight: 143.1 kg Last Vital Signs Temp 36.2 C L 03/21/24 10:00 Pulse 71 03/21/24 10:00 Resp 14 03/21/24 10:00 BP 148/96 H 03/21/24 10:00 Pulse Ox 100 03/21/24 10:00 O2 Del Method Room Air 03/21/24 10:00 Allergies Allergy/AdvReac Type Severity Reaction Status Date / Time Penicillins Allergy Hives Verified 03/21/24 11:00 sulfabenzamide Allergy Hives Verified 03/21/24 11:00 Home Medications Medication Instructions Recorded Confirmed Type tramadol 50 mg tablet 50 mg PO Q6H PRN pain #12 tabs 03/21/24 Rx Patient hx anesthesia problems: none Family hx anesthesia problems: none Results Review: All pre-operative results and documents have been reviewed as part of the pre-operative evaluation. [facility] Past Medical History Medical History No active medical problems Family History Family History Mother Heart disease Hypertension Stomach cancer Anemia Grandparent Lung cancer Social History Social History Smoking status: Never smoker Alcohol intake: current Drinks per week: 2 Substance use: current Substance use type: marijuana Other substance usage details: daily Living arrangements: with family Spiritual care concerns: No Anes - Eval Final PreProcedure Day of Procedure 03/21/24 11:11 Patient weight: morbidly obese Heart: regular rate and rhythm Lungs: clear to auscultation Airway: Mallampati scale class II Neurological: alert and oriented Last oral intake: >/= 8 hours ASA classification: III Emergent: no Anesthetic plan: proceed Anesthesia type and monitoring: general GIVS and standard monitoring Results Review: All pre-operative results and documents have been reviewed as part of the pre-operative evaluation. Informed Consent: The patient's anesthetic plan and its attendant risks and benefits were discussed with the patient/family/POA. Questions were solicited and answers provided to the satisfaction of the patient/family/POA.
[2024-03-21] MEDS: ceFAZolin 3 GM/D5W 100 ML 100 ML IVPB (11:17)
[2024-03-21 11:45] VITALS: BP 93/44; PULSE 58; RESP 16; O2SAT 98
[2024-03-21 12:20] VITALS: BP 95/45; PULSE 61; RESP 16
[2024-03-21 12:51] VITALS: BP 103/78; PULSE 58; RESP 16
== END 2024-03-21 13:00 | disposition home or self-care (01) ==
PROVIDERS: PCP Advanced Practice Midwife; Visit Provider Plastic Surgery
PROC: (CPT 25111; principal; 2024-03-21 10:45)
DX: M67.431 Ganglion, right wrist (principal); F12.90 Cannabis use, unspecified, uncomplicated; E66.01 Morbid (severe) obesity due to excess calories; Z68.43 Body mass index [BMI] 50.0-59.9, adult
CPT/HCPCS: 25111; 88304; J0690; J2250; J2405; J2704; J3010; J7120

== ENCOUNTER 2025-03-02 08:23 | Emergency (ER) | payer SELFPAY ==
--- OUTSIDE RECORDS SUMMARY | 2014-04-26 04:24 | XMS_ITS | Continuity of Care Document ---
Author Organization [facility] Address [address] [place] [address] Phone Care Team Providers Care Spooling Machine Operator Name Role Phone Petey OBREGON, Arlene Unavailable Unavailable Allergies, Adverse Reactions, Alerts Substance Reaction Status Criticality Sulfa (Sulfonamide Antibiotics) anaphylaxis Active No Information Penicillins Active No Information Medications Medication Instructions Dosage Effective Dates (start - stop) Status Comments No Drug Therapy Prescribed Advance Directives Directive Yes / No Effective Date File Name No Information Encounters Encounter Description Practice Location Reason(s) For Visit Diagnoses Date Provider Providers Copied on Encounter [facility], [address], [address], tel:[phone] [facility] No Information 4 Petey Jacobs. [address] [place] [address], [id number] . tel: [phone] [facility], 5 [facility] [address], [address], tel:[phone] [facility] Patellar subluxation 4 Petey Jacobs. [address] [place] [address], [id number] . tel:[phone] Family History Family Member Type Diagnosis Age At Onset No Information Payers Payer name Insurance type Covered republican ID Authoriza tion(s) No Information Social History Type Description Quantity Date Captured Comments Sex Female Smoking Status No Information Chief Complaint And Reason For Visit No Information Reason For Referral Reason For Referral No Information Plan Of Treatment Date Type Action Status Referral Ordered: JENNY MIRANDA COMPL 4/MORE VIEWS RT ordered History Of Present Illness Encounter Date Complaint History Of Prese nt Illness No Information Functional Status Date Functional Assessmen t No Information Medications Administered Medication Instructions Dosage Effective Dates (start - stop) Status Comments No Drug Therapy Prescribed Instructions Date Instruction Additional Infor mation No Information Assessments Type Assessment Date No Information Patient Care Teams Name Effective Dates (start - stop) Status Members No Information
--- OUTSIDE RECORDS SUMMARY | 2014-04-26 04:24 | XMS_ITS | Continuity of Care Document ---
Author Organization [facility] Address [address] [place] [address] Phone Care Team Providers Care Merchant Mill Utility Worker Name Role Phone Petey OBREGON, Arlene Unavailable [...] Diagnoses Date Provider Providers Copied on Encounter [facility], [address], [address], tel:[phone] [facility] No Information 4 Petey Jacobs. [address] [place] [address], [id number] . tel: [phone] [facility], [address] [facility] [address], [place], [address], tel:[phone] [facility] Patellar subluxation 4 Petey Jacobs. [address] [place] [address], [id number] . tel:[phone] Family History Family Member Type Diagnosis Age At Onset No Information Payers Payer name Insurance type Covered green party ID Authoriza tion(s) No Information Social History [...]
--- OUTSIDE RECORDS SUMMARY | 2025-03-02 08:26 | XMS_ITS | Clinical Summary ---
Author Organization [facility] [employer] Address [address] [place] [address] Care Team Providers Care Assisted Sales Representative Name Role Phone Sol Lee APRN-HOUSE FATHER Primary Care Provider Source Comments [facility] Affiliates and Associated Physician Practices is amultiple site organization consisting of ambulatory clinics and hospital sitesin [place], [place], [place]. This disclosure is being madepursuant to the Care Everywhere program and may not contain all information available regarding this patient. Last updated 18.[facility] [employer] Allergies Active Allergy Reactions Criticality Noted Date Comments Penicillins Unknown 09/11/2021 Sulfa Drugs Unknown 09/11/2021 Medications * Be aware that medications may not be up to date on this document. Alwaysverify current medications with the patient. ALPRAZolam (Xanax) 2 MG tablet alprazolam 2 mg tablet TAKE 1 TABLET BY MOUTH 4 TIMES DAILY NEEDED Active Vit-Fe Fumarate-FA ( Vitamin) 27-0.8 MG Vitamin Active escitalopram (Lexapro) 10 MG tablet Take 10 mg by mouth once daily 2 Active metoclopramide (Reglan) 10 MG tablet TAKE 1 TABLET BY MOUTH FOUR TIMES A DAY 2 Active promethazine (Phenergan) 25 MG tablet Take 25 mg by mouth every 4 hours 2 Active Active Problems Patient Care Coordination No te Formatting of this note migh t be different from the original. @[facility] Care [place]: [place] [id number] [facility] [address] [facility] [phone] [place]: [place] [id number] [facility] [address] [place] [address] Problem Noted Date Diagnosed Date Left breast mass 04/20/2022 Obesity affecting , antepartum 02/11/20 22 11/04/2021 Social History Tobacco Use Types Packs/Day Years Used Date Smoking Tobacco: Never Smokeless Tobacco: Never Alcohol Use Standard Drinks/Week Comments Not Currently 0 (1 standard drink = 0.6 oz pur e alcohol) Comments No Sex and Gender Information Value Date Recorded Sex Assigned at Not on file Legal Sex Female 5:38 AM TEMPERATURE CONTROL INSPECTOR Gender Identity Not on file Sexual Orientation Not on file Last Filed Vital Signs Vital Sign Reading Time Taken Comments Blood Pressure 115/64 04/20/2022 1:59 PM CDT Pulse 82 04/20/2022 1:59 PM CDT Temperature 36.5 C (97.7 F) 04/20/2022 1:59 PM CDT Respiratory Rate 15 09/11/2021 4:41 PM TEMPERATURE CONTROL INSPECTOR Oxygen Saturation 100% 09/11/2021 4:41 PM TEMPERATURE CONTROL INSPECTOR Inhaled Oxygen Concentration - - Weight 147 kg (324 lb) 04/20/2022 1:59 PM CDT Height 167.6 cm (5' 6) 04/20/2022 1:59 PM CDT Body Mass Index 52.29 04/20/2022 1:59 PM CDT Plan of Treatment Health Maintenance Due Date Last Done Comments HEPATITIS C SCREENING 07/22/2015 DTAP/TDAP/TD VACCINES (1 - Tdap) 2016 HEPATITIS B VACCINE (1 of 3 - 19+ 3-dose series) 2016 PAP SMEAR 2018 COVID-19 VACCINE ( - 2023-2 5 season) 2024 DEPRESSION SCREENING 07/11/2024 HPV VACCINE (1 - 3-dose SCDM series) 2024 INFLUENZA VACCINE (#1) 2025 04/22/2014 ZOSTER VACCINE (1 of 2) 2047 HIV SCREENING Completed 01/01/2022 HIB VACCINE Aged Out No longer eligi ble based on patient's age to complete this topic MENINGOCOCCAL (Group B) VACC INE SHARED DECISION-MAKING Aged Out No longer eligibl e based on patient's age to complete this topic MENINGOCOCCAL GROUPS A/C/Y/W VACCINE Aged Out No longer eligible b ased on patient's age to complete this topic PNEUMOCOCCAL VACCINE Aged Out No long er eligible based on patient's age to complete this topic Insurance [facility] SELF PAY NO INSURANCE Member Subscriber Plan / Payer (Ef fective for All Dates) Name:Venecia Latham Member ID:Not on file Relation to Subscriber:Not on file Name:VENECIA LATHAM Subscriber ID:Not on file (Home) Address: [address] [place] [id number] Payer ID:Not on file Group ID:Not on file Type:Self Pay Address: [place], [place] [facility] [place] [facility] Care Teams Assisted Sales Representative Relationship Specialty Start Date End Date Sol Lee APRN-JORGE [facility] [address] [place] [id number] PCP - General Nurse Practitioner 04/06/22
[2025-03-02 08:30] VITALS: BP 126/74; PULSE 64; RESP 18; TEMP 36.6; O2SAT 100
[2025-03-02 08:34] VITALS: RESP 18; O2SAT 100
--- NOTE | 2025-03-02 08:40 | ECG_ITS ---
Test Date: 2025-03-02 08:45:26 Measurements Intervals [place] Rate: 59 P: 8 OH: 156 QRS: 43 QRSD: 118 T: 34 QT: 405 QTc: 404 Interpretive Statements SINUS BRADYCARDIA INTRAVENTRICULAR CONDUCTION DELAY BORDERLINE ECG Compared to ECG 02/14/2024 13:54:40 HEART RATE HAS DECREASED Electronically Signed On 03-02-2025 10:33:11 CDT by Ken Cain D.O.
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
--- OUTSIDE RECORDS SUMMARY | 2025-03-02 08:51 | XMS_ITS | Clinical Summary ---
Author Organization [facility] [employer] Address [address] [place] [address] Care Team Providers Care Sports Cartoonist Name Role Phone Sol Lee APRN-SUPPLY CHAIN LOGISTICS MANAGER Primary Care Provider Source Comments [facility],non-[facility] Affiliates and Associated Physician Practices is amultiple site organization consisting of ambulatory clinics and hospital sitesin [place], [place], [place] and [place]. This disclosure is being madepursuant to the Care Everywhere program and may not contain all information available regarding this patient. Last updated 18.[facility] [employer] Allergies Active Allergy Reactions Criticality Noted Date [...] migh t be different from the original. @[facility] Care [place]: [place] [id number] [facility] [address] [facility] [phone] [place]: [place] [address] [facility] [address] [place] [address] Problem Noted Date Diagnosed Date Left breast [...] on file Legal Sex Female 5:38 AM SHANK THREADER Gender Identity Not on file Sexual Orientation Not on file Last Filed Vital Signs Vital Sign Reading Time Taken Comments Blood Pressure 115/64 04/20/2022 1:59 PM CDT Pulse 82 04/20/2022 1:59 PM CDT Temperature 36.5 C (97.7 F) 04/20/2022 1:59 PM CDT Respiratory Rate 15 09/11/2021 4:41 PM SHANK THREADER Oxygen Saturation 100% 09/11/2021 4:41 PM SHANK THREADER Inhaled Oxygen Concentration - - Weight 147 [...] patient's age to complete this topic Insurance [facility] SELF PAY NO INSURANCE Member Subscriber Plan / Payer (Ef fective for All Dates) Name:Venecia Latham Member ID:Not on file Relation to Subscriber:Not on file Name:VENECIA LATHAM Subscriber ID:Not on file (Home) Address: [address] [place] [phone] Payer ID:Not on file Group ID:Not on file Type:Self Pay Address: [place], [place]ICA[facility] [place] MEDICA[place] [facility] Care Teams Sports Cartoonist Relationship Specialty Start Date End Date Sol Lee APRN-JORGE [facility] [address] [place] [phone] PCP - General Nurse Practitioner 04/06/22
--- OUTSIDE RECORDS SUMMARY | 2025-03-02 08:51 | XMS_ITS | Clinical Summary ---
Author Organization [facility] Address [address] [place] [phone] Care Team Providers Care Patcher Helper Name Role Phone Unknown, Notinfile Primary Care Provider Unavail able Allergies Active Allergy Reactions Criticality Noted Date Comments Penicillins Other (See comments),Hives Medium 02/22/2012 Reaction: Sulfa (Sulfonamide Antibiotics) Other (See comments),Hives Medium 02/22/2012 Reaction: Medications prenat.vits,chato, leo-vhos-emcrn tablet Take by mouth daily Active escitalopram (LEXAPRO) 10 mg tablet 3 Active SUMAtriptan (IMITREX) 100 mg tabletIndication s:Migraine Take 1 tablet (100 mg total) by mouth once as needed for migraine for up to 1 dose 9 tablet 3 3 Active topiramate (TOPAMAX) 50 mg tabletIndication s:Chronic migraine w/o aura w/o status migrainosus, not intractable Take 1 tablet (50 mg total) by mouth 2 (two) times a day 60 tablet 3 3 Active Active Problems Problem Noted Date Diagnosed Date Chronic migraine w/o aura w/ o status migrainosus, not intractable 09/20/2022 Immunizations Immunization Administration Dates Next Due DTP / HiB 11/17/1998,02/21/1998,1997 DTaP 11/06/2002,01/28/1999 HPV, Quadrivalent 10/26/2013,03/08/2012,02/11/20 09 Hep A, Pediatric 03/08/2012 IPV 11/06/2002 Influenza, Quadrivalent, Spl it, Preservative Free, Intramuscular 04/22/2014 MMR 11/06/2002,11/17/1998 Meningococcal MCV4, Unspecified 12/06/2014 Polio, Unspecified 1997 Tdap 02/10/2009 Varicella 02/10/2009,07/30/1998 Surgical History Surgery Date Site/Laterality Comments TONSILLECTOMY/ADENOIDECTOMY Medical History Medical History Date Comments Hypertension Headache Depression Overweight PCOS (polycystic ovarian syndrome) Thyroid problems as a result Migraine Family History Medical History Relation Name Comments Cancer Other Family history of malignant neoplasm - (Added by TW Conv) Hypertension Other Family history of hypertension - (Added by TW Conv) Stroke Other Stroke of unkno wn cause - (Added by TW Conv) Relation Name Status Comments Other Social History Tobacco Use Types Packs/Day Years Used Date Smoking Tobacco: Never Tobacco Cessation:Counseling Given: Not Answered Comments Unknown Sex and Gender Information Value Date Recorded Sex Assigned at Not on file Legal Sex Female 7:37 AM LEATHER SPONGER Gender Identity Female 12/01/2021 1:22 PM CDT Sexual Orientation Not on file Obstetrics History Last Filed Vital Signs Vital Sign Reading Time Taken Comments Blood Pressure 143/88 09/20/2022 8:20 AM CDT Pulse 82 09/20/2022 8:20 AM CDT Temperature 36.1 C (96.9 F) 12/01/2021 1:25 PM CDT Respiratory Rate 20 12/01/2021 1:25 PM CDT Oxygen Saturation 95% 09/20/2022 8:20 AM CDT Inhaled Oxygen Concentration - - Weight 160.4 kg (353 lb 9.6 oz) 09/20/2022 8:20 AM CDT Height 167.6 cm (5' 6) 09/20/2022 8:20 AM CDT Body Mass Index 57.07 09/20/2022 8:20 AM CDT Plan of Treatment Health Maintenance Due Date Last Done Comments Cervical Cancer Screening 1997 Depression Screening 1997 Hepatitis C Screening 1997 Hepatitis B Screening 2015 Regular Well Visit/Exam 18-64 2015 DTaP/Tdap/Td Vaccine (6 - Td or Tdap) 02/10/2019 02/10/2009, 11/06/2002, 01/28/1999, Additional history exists Influenza Vaccine (#1) 2025 04/22/2014 Varicella Vaccines Completed 02/10/2009, 07/30/1998 HPV Vaccines Completed 10/26/2013, 02/09, 02/10/2009 Pneumococcal vaccine <65 Aged Out No longer eligible based on patient's age to complete this topic Insurance [facility] Care Teams Patcher Helper Relationship Specialty Start Date End Date Unknown, Notinfile PCP - General 01/19/17
[2025-03-02 09:08] VITALS: BP 112/74; PULSE 59; RESP 18; O2SAT 100
== END 2025-03-02 09:10 | disposition home or self-care (01) ==
PROVIDERS: Emergency Provider Emergency Medicine
DX: Z01.810 Encounter for preprocedural cardiovascular examination (principal); S46.019A Strain of muscle(s) and tendon(s) of the rotator cuff of unspecified shoulder, initial encounter; R00.1 Bradycardia, unspecified; I45.9 Conduction disorder, unspecified; V49.9XXA Car occupant (driver) (passenger) injured in unspecified traffic accident, initial encounter
CPT/HCPCS: 93005; 99283